=== PATIENT | female | born 1955 | race Caucasian/White ===

== ENCOUNTER 2018-10-15 18:50 | Emergency (ER) | payer MEDICARE ==
[~2018-10-15] VITALS: Ht 162.6 cm; Wt 83.9 kg
--- OUTSIDE RECORDS SUMMARY | 2018-10-15 18:55 | XMS REPORT | Continuity of Care Document ---
Author Author [facility] Interface Address Unknown Phone Unavailable Problems Problem Status Onset Date Classification Date Reported Comments Source Anxiety Active Diagnosis 01/06/2014 [facility] Insomnia Active Problem 02/09/2015 [facility] Diabetes mellitus Active Problem 02/09/2015 [facility] Chronic pain Active Problem 02/09/2015 [facility] Hypothyroid Active Problem 02/09/2015 [facility] Arachnoiditis Active Problem 02/09/2015 [facility] TMJ Active Problem 02/09/2015 [facility] Depression Active Problem 02/09/2015 [facility] Encounter for screening mammogram for malignant neoplasm of breast Active Diagnosis 05/13/2013 [facility] Ear pain Active Diagnosis 07/31/2013 [facility] UTI Active Diagnosis 05/14/2014 [facility] HTN Active Problem 02/09/2015 [facility] Cephalgia Active Diagnosis 02/18/2014 [facility] Monilia infection Active Diagnosis 01/06/2014 [facility] Hyperlipidemia Active Problem 02/09/2015 [facility] Peripheral neuropathy Active Problem 02/09/2015 [facility] Vitamin d deficiency Active Problem 02/09/2015 [facility] Abnormal urine odor Active Diagnosis 04/28/2014 [facility] Other follow-up examination Active Diagnosis 10/11/2014 [facility] Obesity Active Diagnosis 10/11/2014 [facility] BMI 31.0-31.9,adult Active Diagnosis 10/11/2014 [facility] Left anterior fascicular block Active Diagnosis 02/09/2015 [facility] Encounter for screening breast examination Active Diagnosis 10/11/2014 [facility] Urinary tract infection Active Diagnosis 01/04/2015 [facility] History of recent fall Active Diagnosis 12/18/2014 [facility] Mild concentric left ventricular hypertrophy Active Diagnosis 12/18/2014 [facility] Rib pain on right side Active Diagnosis 12/18/2014 [facility] Lumbosacral radiculopathy Active Problem 07/29/2016 [facility] Type 2 diabetes mellitus with diabetic mononeuropathy Active Problem 07/29/2016 [facility] Primary osteoarthritis of right foot Active Problem 07/29/2016 [facility] Peripheral neuropathy Active Problem 05/04/2015 [facility] Insomnia Active Problem 05/04/2015 [facility] HTN Active Problem 05/04/2015 [facility] TMJ Active Problem 05/04/2015 [facility] Depression Active Problem 05/04/2015 [facility] Diabetes Active Problem 05/04/2015 [facility] Arachnoiditis Active Problem 05/04/2015 [facility] Chronic pain Active Problem 05/04/2015 [facility] Hypothyroidism Active Problem 05/04/2015 [facility] Low back pain Active Problem 05/04/2015 [facility] Hyperlipidemia Active Problem 05/04/2015 [facility] Vitamin D deficiency Active Problem 05/04/2015 [facility] Hypertriglyceridemia Active Problem 05/04/2015 [facility] Acute sinusitis, unspecified Active Diagnosis 04/03/2015 [facility] Chronic arthritis Active Diagnosis 04/23/2015 [facility] Ear pain Active Diagnosis 04/23/2015 [facility] Medications Medication Details Route Status Patient Instructions Ordering Provider Order Date Source Invokana 1 tablet Orally Active 100 mg Orally Once a day Darinel 04/21/2015 [facility] Lovaza 2 capsules Orally Active 1 GM Orally Twice a day Darinel 04/21/2015 [facility] Levothyroxine Sodium 1 tablet Orally Active 100 MCG Orally Once a day, 30 minutes before first meal on an empty stomach Venus 04/06/2015 [facility] Omnicef 1 capsule Orally Active 300 MG Orally every 12 hrs Buntyn 03/31/2015 [facility] Macrobid 1 capsule with food Orally Active 100 mg Orally every 12 hrs [place] 12/16/2014 [facility] Cipro 1 tablet Orally Active 250 MG Orally Twice a day [place] 04/15/2014 [facility] MetFORMIN HCl ER 1 tablet Orally Active 500 mg [facility] a [facility] Lisinopril 1 tablet Orally Active 10 mg Orally Once a day [facility] 02/16/2014 [facility] MetFORMIN HCl ER 1 tablet Orally Active 1000 mg Orally twice a day (bid) [facility] 02/16/2014 [facility] Effexor XR 1 capsule with food Orally Active 75 mg Orally Once a day [facility] 12/10/2013 [facility] Zolpidem Tartrate 1 tablet at bedtime Orally Active 5 MG Orally qhs [facility] 12/10/2013 [facility] Cipro 1 tablet Orally Active 250 MG Orally Twice a day [facility] 09/11/2013 [facility] Venlafaxine HCl ER 1 capsule Orally Active 150 MG Orally Once a day [facility] 06/30/2013 [facility] Bydureon 2 mg subcutaneous Active 2mg subcutaneous weekly [facility] 06/30/2013 [facility] Bydureon 2 mg subcutaneous Active 2mg subcutaneous weekly [facility] 06/30/2013 [facility] Vitamin D (Ergocalciferol) 1 capsule Orally Active 14894 UNIT Orally Once a week [facility] 05/09/2013 [facility] Augmentin 1 tablet Orally Active 875-125 MG Orally Twice a day [facility] 05/01/2013 [facility] Hydrocodone-Acetaminophen 1 tablet as needed Orally Active 10- 325 MG Orally every 6 hrs [facility] Cranberry Plus Vitamin C as directed Orally Active 4200-20-3 MG-MG-UNIT Orally [facility] Januvia 1 tablet Orally Active 100 mg Orally Once a day [facility] Levothyroxine Sodium 1 tablet on an empty stomach in the morning Orally No Longer Active 75 MCG Orally Once a day Trixie [facility] Venlafaxine HCl ER 2 tablet with food Orally No Longer Active 150 MG Orally [facility] Glimepiride 2 tablet with breakfast or the first main meal of the day Orally Active 4 mg Orally Once a day Venus [facility] Pravastatin Sodium 1 tablet Orally Active 40 mg Orally Once a day Zachariahtonya [facility] Levothyroxine Sodium 1 tablet on an empty stomach in the morning Orally Active 75 MCG Orally [facility] Meloxicam 1 tablet Orally Active 7.5 MG Orally Once a day [facility] Tizanidine HCl 1 tablet as needed Orally Active 2 MG Orally every 8 hrs [facility] Baclofen 62.45 mg Intrathecal Active 50 MCG/ML Intrathecal daily Venus [facility] Gabapentin Unknown Orally Active 100 mg Orally patient takes 6 tablets through out the day Venus [facility] Tizanidine HCl 1 capsule as needed Orally Active 2 MG Orally every 8 hrs Venus [facility] Pravastatin Sodium 1 tablet Orally Active 80 mg Orally Once a day Venus [facility] Allergies, Adverse Reactions, Alerts Substance Category Reaction Severity Reaction type Status Date Reported Comments Source N.K.D.A. Adverse Reaction Info Not Available Adverse Reaction Active 04/21/2015 [facility] Immunizations Immunization Date Given Site Status Last Updated Comments Source Results Order Name Results Value Reference Range Date Interpretation Comments Source Vital Signs Vital Sign Value Date Comments Source Weight 188 04/21/2015 [facility] Height 64 04/21/2015 [facility] Heart Rate 100 04/21/2015 [facility] Diastolic (mm Hg) 72 04/21/2015 [facility] Systolic (mm Hg) 124 04/21/2015 [facility] Weight 193 03/31/2015 [facility] Height 64 03/31/2015 [facility] Heart Rate 76 03/31/2015 [facility] Diastolic (mm Hg) 74 03/31/2015 [facility] Systolic (mm Hg) 126 03/31/2015 [facility] Weight 185 02/03/2015 [facility] Height 64 02/03/2015 [facility] Heart Rate 76 02/03/2015 [facility] Diastolic (mm Hg) 76 02/03/2015 [facility] Systolic (mm Hg) 134 02/03/2015 [facility] Weight 185 12/16/2014 [facility] Height 64 12/16/2014 [facility] Heart Rate 78 12/16/2014 [facility] Diastolic (mm Hg) 64 12/16/2014 [facility] Systolic (mm Hg) 120 12/16/2014 [facility] Weight 182 10/08/2014 [facility] Height 64 10/08/2014 [facility] Heart Rate 94 10/08/2014 [facility] Diastolic (mm Hg) 70 10/08/2014 [facility] Systolic (mm Hg) 132 10/08/2014 [facility] Weight 188 04/15/2014 [facility] Height 64 04/15/2014 [facility] Temperature Oral (F) 98.4 F 04/15/2014 [facility] Heart Rate 80 04/15/2014 [facility] Diastolic (mm Hg) 86 04/15/2014 [facility] Systolic (mm Hg) 136 04/15/2014 [facility] Weight 200 04/09/2014 [facility] Height 64 04/09/2014 [facility] Heart Rate 76 04/09/2014 [facility] Diastolic (mm Hg) 74 04/09/2014 [facility] Systolic (mm Hg) 120 04/09/2014 [facility] Weight 200 02/16/2014 [facility] Height 64 02/16/2014 [facility] Heart Rate 88 02/16/2014 [facility] Diastolic (mm Hg) 100 02/16/2014 [facility] Systolic (mm Hg) 160 02/16/2014 [facility] Weight 206 12/10/2013 [facility] Height 64 12/10/2013 [facility] Temperature Oral (F) 98.2 F 12/10/2013 [facility] Heart Rate 80 12/10/2013 [facility] Diastolic (mm Hg) 82 12/10/2013 [facility] Systolic (mm Hg) 120 12/10/2013 [facility] Weight 202 09/11/2013 [facility] Height 64 09/11/2013 [facility] Heart Rate 82 09/11/2013 [facility] Diastolic (mm Hg) 86 09/11/2013 [facility] Systolic (mm Hg) 138 09/11/2013 [facility] Weight 210 06/30/2013 [facility] Height 64 06/30/2013 [facility] Heart Rate 82 06/30/2013 [facility] Diastolic (mm Hg) 70 06/30/2013 [facility] Systolic (mm Hg) 120 06/30/2013 [facility] Weight 205 05/01/2013 [facility] Height 64 05/01/2013 [facility] Temperature Oral (F) 98.4 F 05/01/2013 [facility] Heart Rate 88 05/01/2013 [facility] Diastolic (mm Hg) 98 05/01/2013 [facility] Systolic (mm Hg) 138 05/01/2013 [facility] Encounters Location Location Details Encounter Type Encounter Number Reason For Visit Attending Provider ADM Date DC Date Status Source [facility] JOANNE [id number] 05/01/2013 05/01/2013 [facility] JOANNE [id number] 05/01/2013 05/01/2013 [facility] JOANNE [id number] 05/01/2013 05/01/2013 [facility] DM [id number] 05/01/2013 05/01/2013 [facility] DM [id number] 05/01/2013 05/01/2013 [facility] DM [id number] 05/01/2013 05/01/2013 [facility] DM [id number] 05/01/2013 05/01/2013 [facility] DM [id number] 05/01/2013 05/01/2013 [facility] DM [id number] 05/01/2013 05/01/2013 [facility] DM [id number] 05/01/2013 05/01/2013 [facility] DM [id number] 05/01/2013 05/01/2013 [facility] DM [id number] 05/01/2013 05/01/2013 [facility] DM [id number] 05/01/2013 05/01/2013 [facility] DM [id number] 05/01/2013 05/01/2013 [facility] DM [id number] 05/01/2013 05/01/2013 [facility] DM [id number] 05/01/2013 05/01/2013 [facility] DM [id number] 05/01/2013 05/01/2013 [facility] DM [id number] 05/01/2013 05/01/2013 [facility] DM [id number] 05/01/2013 05/01/2013 [facility] DM [id number] 05/01/2013 05/01/2013 [facility] DM [id number] 05/01/2013 05/01/2013 [facility] DM [id number] 05/01/2013 05/01/2013 [facility] Test Results/MMG order [id number] 05/09/2013 05/09/2013 [facility] Test Results/MMG order [id number] 05/09/2013 05/09/2013 [facility] Test Results/MMG order [id number] 05/09/2013 05/09/2013 [facility] Test Results/MMG order [id number] 05/09/2013 05/09/2013 [facility] Test Results/MMG order [id number] 05/09/2013 05/09/2013 [facility] Test Results/MMG order [id number] 05/09/2013 05/09/2013 [facility] Test Results/MMG order [id number] 05/09/2013 05/09/2013 [facility] Test Results/MMG order [id number] 05/09/2013 05/09/2013 [facility] Test Results/MMG order [id number] 05/09/2013 05/09/2013 [facility] Test Results/MMG order [id number] 05/09/2013 05/09/2013 [facility] Test Results/MMG order [id number] 05/09/2013 05/09/2013 [facility] Test Results/MMG order [id number] 05/09/2013 05/09/2013 [facility] Test Results/MMG order [id number] 05/09/2013 05/09/2013 [facility] Test Results/MMG order [id number] 05/09/2013 05/09/2013 [facility] Test Results/MMG order [id number] 05/09/2013 05/09/2013 [facility] Test Results/MMG order [id number] 05/09/2013 05/09/2013 [facility] Test Results/MMG order [id number] 05/09/2013 05/09/2013 [facility] Test Results/MMG order [id number] 05/09/2013 05/09/2013 [facility] Test Results/MMG order [id number] 05/09/2013 05/09/2013 [facility] Test Results/MMG order [id number] 05/09/2013 05/09/2013 [facility] Test Results/MMG order [id number] 05/09/2013 05/09/2013 [facility] Test Results/MMG order [id number] 05/09/2013 05/09/2013 [facility] Test Results/MMG order [id number] 05/09/2013 05/09/2013 [facility] Test Results/MMG order [id number] 05/09/2013 05/09/2013 [facility] Medication Refill [id number] 05/28/2013 05/28/2013 [facility] Medication Refill [id number] 05/28/2013 05/28/2013 [facility] Medication Refill [id number] 05/28/2013 05/28/2013 [facility] Medication Refill [id number] 05/28/2013 05/28/2013 [facility] Medication Refill [id number] 05/28/2013 05/28/2013 [facility] Medication Refill [id number] 05/28/2013 05/28/2013 [facility] Medication Refill [id number] 05/28/2013 05/28/2013 [facility] Medication Refill [id number] 05/28/2013 05/28/2013 [facility] Medication Refill [id number] 05/28/2013 05/28/2013 [facility] Medication Refill [id number] 05/28/2013 05/28/2013 [facility] Medication Refill [id number] 05/28/2013 05/28/2013 [facility] Medication Refill [id number] 05/28/2013 05/28/2013 [facility] [facility] Medication Refill [id number] 05/28/2013 05/28/2013 [facility] Medication Refill [id number] 05/28/2013 05/28/2013 [facility] Medication Refill [id number] 05/28/2013 05/28/2013 [facility] Medication Refill [id number] 05/28/2013 05/28/2013 [facility] Medication Refill [id number] 05/28/2013 05/28/2013 [facility] Medication Refill [id number] 05/28/2013 05/28/2013 [facility] Medication Refill [id number] 05/28/2013 05/28/2013 [facility] Medication Refill [id number] 05/28/2013 05/28/2013 [facility] Medication Refill [id number] 05/28/2013 05/28/2013 [facility] Medication Refill [id number] 05/28/2013 05/28/2013 [facility] Medication Refill [id number] 05/28/2013 05/28/2013 [facility] DM [id number] 06/30/2013 06/30/2013 [facility] DM [id number] 06/30/2013 06/30/2013 [facility] DM [id number] 06/30/2013 06/30/2013 [facility] DM [id number] 06/30/2013 06/30/2013 [facility] DM [id number] 06/30/2013 06/30/2013 [facility] DM [id number] 06/30/2013 06/30/2013 [facility] DM [id number] 06/30/2013 06/30/2013 [facility] DM [id number] 06/30/2013 06/30/2013 [facility] DM [id number] 06/30/2013 06/30/2013 [facility] DM [id number] 06/30/2013 06/30/2013 [facility] DM [id number] 06/30/2013 06/30/2013 [facility] DM [id number] 06/30/2013 06/30/2013 [facility] DM [id number] 06/30/2013 06/30/2013 [facility] DM [id number] 06/30/2013 06/30/2013 [facility] DM [id number] 06/30/2013 06/30/2013 [facility] DM [id number] 06/30/2013 06/30/2013 [facility] DM [id number] 06/30/2013 06/30/2013 [facility] DM [id number] 06/30/2013 06/30/2013 [facility] DM [id number] 06/30/2013 06/30/2013 [facility] DM [id number] 06/30/2013 06/30/2013 [facility] DM [id number] 06/30/2013 06/30/2013 [facility] DM [id number] 06/30/2013 06/30/2013 [facility] DIAB CHK [id number] 09/11/2013 09/11/2013 [facility] DIAB CHK [id number] 09/11/2013 09/11/2013 [facility] DIAB CHK [id number] 09/11/2013 09/11/2013 [facility] DIAB CHK [id number] 09/11/2013 09/11/2013 [facility] DIAB K [id number] 09/11/2013 09/11/2013 [facility] DIAB K [id number] 09/11/2013 09/11/2013 [facility] DIAB K [id number] 09/11/2013 09/11/2013 [facility] DIAB [facility] [id number] 09/11/2013 09/11/2013 [facility] DIAB K [id number] 09/11/2013 09/11/2013 [facility] DIAB [facility] [id number] 09/11/2013 09/11/2013 [facility] DIAB [facility] [id number] 09/11/2013 09/11/2013 [facility] DIAB K [id number] 09/11/2013 09/11/2013 [facility] DIAB [facility] [id number] 09/11/2013 09/11/2013 [facility] DIAB [facility] [id number] 09/11/2013 09/11/2013 [facility] DIAB K [id number] 09/11/2013 09/11/2013 [facility] DIAB K [id number] 09/11/2013 09/11/2013 [facility] DIAB K [id number] 09/11/2013 09/11/2013 [facility] DIAB K [id number] 09/11/2013 09/11/2013 [facility] DIAB K [id number] 09/11/2013 09/11/2013 [facility] DIAB K [id number] 09/11/2013 09/11/2013 [facility] Diabetes/ Anxiety [id number] 12/10/2013 12/10/2013 [facility] Diabetes/ Anxiety [id number] 12/10/2013 12/10/2013 [facility] Diabetes/ Anxiety [id number] 12/10/2013 12/10/2013 [facility] Diabetes/ Anxiety [id number] 12/10/2013 12/10/2013 [facility] Diabetes/ Anxiety [id number] 12/10/2013 12/10/2013 [facility] Diabetes/ Anxiety [id number] 12/10/2013 12/10/2013 [facility] Diabetes/ Anxiety [id number] 12/10/2013 12/10/2013 [facility] Diabetes/ Anxiety [id number] 12/10/2013 12/10/2013 [facility] Diabetes/ Anxiety [id number] 12/10/2013 12/10/2013 [facility] Diabetes/ Anxiety [id number] 12/10/2013 12/10/2013 [facility] Diabetes/ Anxiety [id number] 12/10/2013 12/10/2013 [facility] Diabetes/ Anxiety [id number] 12/10/2013 12/10/2013 [facility] Diabetes/ Anxiety [id number] 12/10/2013 12/10/2013 [facility] Diabetes/ Anxiety [id number] 12/10/2013 12/10/2013 [facility] Diabetes/ Anxiety [id number] 12/10/2013 12/10/2013 [facility] Diabetes/ Anxiety [id number] 12/10/2013 12/10/2013 [facility] Diabetes/ Anxiety [id number] 12/10/2013 12/10/2013 [facility] Diabetes/ Anxiety [id number] 12/10/2013 12/10/2013 [facility] Diabetes/ Anxiety [id number] 12/10/2013 12/10/2013 [facility] Venlafaxine prescription [id number] 12/23/2013 12/23/2013 [facility] Venlafaxine prescription [id number] 12/23/2013 12/23/2013 [facility] Venlafaxine prescription [id number] 12/23/2013 12/23/2013 [facility] Venlafaxine prescription [id number] 12/23/2013 12/23/2013 [facility] Venlafaxine prescription [id number] 12/23/2013 12/23/2013 [facility] Venlafaxine prescription [id number] 12/23/2013 12/23/2013 [facility] Venlafaxine prescription [id number] 12/23/2013 12/23/2013 [facility] Venlafaxine prescription [id number] 12/23/2013 12/23/2013 [facility] Venlafaxine prescription [id number] 12/23/2013 12/23/2013 [facility] Venlafaxine prescription [id number] 12/23/2013 12/23/2013 [facility] Venlafaxine prescription [id number] 12/23/2013 12/23/2013 [facility] Venlafaxine prescription [id number] 12/23/2013 12/23/2013 [facility] Venlafaxine prescription [id number] 12/23/2013 12/23/2013 [facility] Venlafaxine prescription [id number] 12/23/2013 12/23/2013 [facility] Venlafaxine prescription [id number] 12/23/2013 12/23/2013 [facility] Venlafaxine prescription [id number] 12/23/2013 12/23/2013 [facility] Venlafaxine prescription [id number] 12/23/2013 12/23/2013 [facility] Venlafaxine prescription [id number] 12/23/2013 12/23/2013 [facility] Venlafaxine prescription [id number] 12/23/2013 12/23/2013 [facility] FOLLOW UP ON DIABETES [id number] 02/16/2014 02/16/2014 [facility] FOLLOW UP ON DIABETES [id number] 02/16/2014 02/16/2014 [facility] FOLLOW UP ON DIABETES [id number] 02/16/2014 02/16/2014 [facility] FOLLOW UP ON DIABETES [id number] 02/16/2014 02/16/2014 [facility] FOLLOW UP ON DIABETES [id number] 02/16/2014 02/16/2014 [facility] FOLLOW UP ON DIABETES [id number] 02/16/2014 02/16/2014 [facility] FOLLOW UP ON DIABETES [id number] 02/16/2014 02/16/2014 [facility] FOLLOW UP ON DIABETES [id number] 02/16/2014 02/16/2014 [facility] FOLLOW UP ON DIABETES [id number] 02/16/2014 02/16/2014 [facility] FOLLOW UP ON DIABETES [id number] 02/16/2014 02/16/2014 [facility] FOLLOW UP ON DIABETES [id number] 02/16/2014 02/16/2014 [facility] FOLLOW UP ON DIABETES [id number] 02/16/2014 02/16/2014 [facility] FOLLOW UP ON DIABETES [id number] 02/16/2014 02/16/2014 [facility] FOLLOW UP ON DIABETES [id number] 02/16/2014 02/16/2014 [facility] FOLLOW UP ON DIABETES [id number] 02/16/2014 02/16/2014 [facility] FOLLOW UP ON DIABETES [id number] 02/16/2014 02/16/2014 [facility] FOLLOW UP ON DIABETES [id number] 02/16/2014 02/16/2014 [facility] 2 week follow up [id number] 04/09/2014 04/09/2014 [facility] 2 week follow up [id number] 04/09/2014 04/09/2014 [facility] 2 week follow up [id number] 04/09/2014 04/09/2014 [facility] 2 week follow up [id number] 04/09/2014 04/09/2014 [facility] 2 week follow up [id number] 04/09/2014 04/09/2014 [facility] 2 week follow up [id number] 04/09/2014 04/09/2014 [facility] 2 week follow up [id number] 04/09/2014 04/09/2014 [facility] 2 week follow up [id number] 04/09/2014 04/09/2014 [facility] 2 week follow up [id number] 04/09/2014 04/09/2014 [facility] 2 week follow up [id number] 04/09/2014 04/09/2014 [facility] 2 week follow up [id number] 04/09/2014 04/09/2014 [facility] 2 week follow up [id number] 04/09/2014 04/09/2014 [facility] 2 week follow up [id number] 04/09/2014 04/09/2014 [facility] 2 week follow up [id number] 04/09/2014 04/09/2014 [facility] 2 week follow up [id number] 04/09/2014 04/09/2014 [facility] 2 week follow up [id number] 04/09/2014 04/09/2014 [facility] BLADDER [id number] 04/15/2014 04/15/2014 [facility] BLADDER [id number] 04/15/2014 04/15/2014 [facility] BLADDER [id number] 04/15/2014 04/15/2014 [facility] BLADDER [id number] 04/15/2014 04/15/2014 [facility] BLADDER [id number] 04/15/2014 04/15/2014 [facility] BLADDER [id number] 04/15/2014 04/15/2014 [facility] BLADDER [id number] 04/15/2014 04/15/2014 [facility] BLADDER [id number] 04/15/2014 04/15/2014 [facility] [facility] BLADDER [id number] 04/15/2014 04/15/2014 [facility] BLADDER [id number] 04/15/2014 04/15/2014 [facility] BLADDER [id number] 04/15/2014 04/15/2014 [facility] BLADDER [id number] 04/15/2014 04/15/2014 [facility] BLADDER [id number] 04/15/2014 04/15/2014 [facility] BLADDER [id number] 04/15/2014 04/15/2014 [facility] BLADDER [id number] 04/15/2014 04/15/2014 [facility] BLADDER [id number] 04/15/2014 04/15/2014 [facility] Urine Infection [id number] 04/30/2014 04/30/2014 [facility] Urine Infection [id number] 04/30/2014 04/30/2014 [facility] Urine Infection [id number] 04/30/2014 04/30/2014 [facility] Urine Infection [id number] 04/30/2014 04/30/2014 [facility] Urine Infection [id number] 04/30/2014 04/30/2014 [facility] Urine Infection [id number] 04/30/2014 04/30/2014 [facility] Urine Infection [id number] 04/30/2014 04/30/2014 [facility] Urine Infection [id number] 04/30/2014 04/30/2014 [facility] Urine Infection [id number] 04/30/2014 04/30/2014 [facility] Urine Infection [id number] 04/30/2014 04/30/2014 [facility] Urine Infection [id number] 04/30/2014 04/30/2014 [facility] Urine Infection [id number] 04/30/2014 04/30/2014 [facility] Urine Infection [id number] 04/30/2014 04/30/2014 [facility] Urine Infection [id number] 04/30/2014 04/30/2014 [facility] [place] U/A C&S [id number] 05/04/2014 05/04/2014 [facility] [place] U/A C&S [id number] 05/04/2014 05/04/2014 [facility] [place] U/[place] C&S [id number] 05/04/2014 05/04/2014 [facility] [place] U/[place] C&S [id number] 05/04/2014 05/04/2014 [facility] [place] U/[place] C&S [id number] 05/04/2014 05/04/2014 [facility] [place] U/[place] C&S [id number] 05/04/2014 05/04/2014 [facility] [place] U/[place] C&S [id number] 05/04/2014 05/04/2014 [facility] [place] U/[place] C&S [id number] 05/04/2014 05/04/2014 [facility] [place] U[place] C&S [id number] 05/04/2014 05/04/2014 [facility] [place] U/[place] C&S [id number] 05/04/2014 05/04/2014 [facility] [place] U[place] C&S [id number] 05/04/2014 05/04/2014 [facility] [place] U/[place] C&S [id number] 05/04/2014 05/04/2014 [facility] [place] U/[place] C&S [id number] 05/04/2014 05/04/2014 [facility] [place] U[place] C&S [id number] 05/04/2014 05/04/2014 [facility] Unknown [id number] 05/07/2014 05/07/2014 [facility] Unknown [id number] 05/07/2014 05/07/2014 [facility] Unknown [id number] 05/07/2014 05/07/2014 [facility] Unknown [id number] 05/07/2014 05/07/2014 [facility] Unknown [id number] 05/07/2014 05/07/2014 [facility] Unknown [id number] 05/07/2014 05/07/2014 [facility] Unknown [id number] 05/07/2014 05/07/2014 [facility] Unknown [id number] 05/07/2014 05/07/2014 [facility] Unknown [id number] 05/07/2014 05/07/2014 [facility] Unknown [id number] 05/07/2014 05/07/2014 [facility] Unknown [id number] 05/07/2014 05/07/2014 [facility] Unknown [id number] 05/07/2014 05/07/2014 [facility] Unknown [id number] 05/07/2014 05/07/2014 [facility] Unknown [id number] 05/07/2014 05/07/2014 [facility] Refill [id number] 05/29/2014 05/29/2014 [facility] Refill [id number] 05/29/2014 05/29/2014 [facility] Refill [id number] 05/29/2014 05/29/2014 [facility] Refill [id number] 05/29/2014 05/29/2014 [facility] Refill [id number] 05/29/2014 05/29/2014 [facility] Refill [id number] 05/29/2014 05/29/2014 [facility] Refill [id number] 05/29/2014 05/29/2014 [facility] Refill [id number] 05/29/2014 05/29/2014 [facility] Refill [id number] 05/29/2014 05/29/2014 [facility] Refill [id number] 05/29/2014 05/29/2014 [facility] Refill [id number] 05/29/2014 05/29/2014 [facility] follow up [id number] 06/24/2014 06/24/2014 [facility] follow up [id number] 06/24/2014 06/24/2014 [facility] follow up [id number] 06/24/2014 06/24/2014 [facility] follow up [id number] 06/24/2014 06/24/2014 [facility] follow up [id number] 06/24/2014 06/24/2014 [facility] follow up [id number] 06/24/2014 06/24/2014 [facility] follow up [id number] 06/24/2014 06/24/2014 [facility] follow up [id number] 06/24/2014 06/24/2014 [facility] follow up [id number] 06/24/2014 06/24/2014 [facility] follow up [id number] 06/24/2014 06/24/2014 [facility] Unknown [id number] 06/26/2014 06/26/2014 [facility] Unknown [id number] 06/26/2014 06/26/2014 [facility] Unknown [id number] 06/26/2014 06/26/2014 [facility] Unknown [id number] 06/26/2014 06/26/2014 [facility] Unknown [id number] 06/26/2014 06/26/2014 [facility] Unknown [id number] 06/26/2014 06/26/2014 [facility] Unknown [id number] 06/26/2014 06/26/2014 [facility] Unknown [id number] 06/26/2014 06/26/2014 [facility] Unknown [id number] 06/26/2014 06/26/2014 [facility] Unknown [id number] 06/26/2014 06/26/2014 [facility] 2 week follow up [id number] 07/08/2014 07/08/2014 [facility] 2 week follow up [id number] 07/08/2014 07/08/2014 [facility] 2 week follow up [id number] 07/08/2014 07/08/2014 [facility] 2 week follow up [id number] 07/08/2014 07/08/2014 [facility] 2 week follow up [id number] 07/08/2014 07/08/2014 [facility] 2 week follow up [id number] 07/08/2014 07/08/2014 [facility] 2 week follow up [id number] 07/08/2014 07/08/2014 [facility] 2 week follow up [id number] 07/08/2014 07/08/2014 [facility] 2 week follow up [id number] 07/08/2014 07/08/2014 [facility] 2 week follow up [id number] 07/08/2014 07/08/2014 [facility] Unknown [id number] 07/26/2014 07/26/2014 [facility] Unknown [id number] 07/26/2014 07/26/2014 [facility] Unknown [id number] 07/26/2014 07/26/2014 [facility] Unknown [id number] 07/26/2014 07/26/2014 [facility] Unknown [id number] 07/26/2014 07/26/2014 [facility] Unknown [id number] 07/26/2014 07/26/2014 [facility] Unknown [id number] 07/26/2014 07/26/2014 [facility] Unknown [id number] 07/26/2014 07/26/2014 [facility] Unknown [id number] 07/26/2014 07/26/2014 [facility] Unknown [id number] 07/26/2014 07/26/2014 [facility] Update Demographics - Personal Info [id number] 08/26/2014 08/26/2014 [facility] Update Demographics - Additional Info [id number] 08/26/2014 08/26/2014 [facility] Update Demographics - Additional Info [id number] 08/26/2014 08/26/2014 [facility] Update Demographics - Personal Info [id number] 08/26/2014 08/26/2014 [facility] Update Demographics - Personal Info [id number] 08/26/2014 08/26/2014 [facility] Update Demographics - Additional Info [id number] 08/26/2014 08/26/2014 [facility] Update Demographics - Personal Info [id number] 08/26/2014 08/26/2014 [facility] Update Demographics - Additional Info [id number] 08/26/2014 08/26/2014 [facility] Update Demographics - Personal Info [id number] 08/26/2014 08/26/2014 [facility] Update Demographics - Additional Info [id number] 08/26/2014 08/26/2014 [facility] Update Demographics - Personal Info [id number] 08/26/2014 08/26/2014 [facility] Update Demographics - Additional Info [id number] 08/26/2014 08/26/2014 [facility] Update Demographics - Personal Info [id number] 08/26/2014 08/26/2014 [facility] Update Demographics - Additional Info [id number] 08/26/2014 08/26/2014 [facility] Update Demographics - Personal Info [id number] 08/26/2014 08/26/2014 [facility] Update Demographics - Additional Info [id number] 08/26/2014 08/26/2014 [facility] Update Demographics - Personal Info [id number] 08/26/2014 08/26/2014 [facility] Update Demographics - Additional Info [id number] 08/26/2014 08/26/2014 [facility] Update Demographics - Personal Info [id number] 08/26/2014 08/26/2014 [facility] Update Demographics - Additional Info [id number] 08/26/2014 08/26/2014 [facility] [id number] 09/03/2014 09/03/2014 [facility] SIN[facility] ALLERGIES [id number] 09/03/2014 09/03/2014 [facility] SINUS AND ALLERGIES [id number] 09/03/2014 09/03/2014 [facility] SINUS AND ALLERGIES [id number] 09/03/2014 09/03/2014 [facility] SINUS AND ALLERGIES [id number] 09/03/2014 09/03/2014 [facility] SINUS AND ALLERGIES [id number] 09/03/2014 09/03/2014 [facility] SINUS AND ALLERGIES [id number] 09/03/2014 09/03/2014 [facility] SINUS AND ALLERGIES [id number] 09/03/2014 09/03/2014 [facility] SINUS AND ALLERGIES [id number] 09/03/2014 09/03/2014 [facility] SINUS AND ALLERGIES [id number] 09/03/2014 09/03/2014 [facility] Carley Saucedo; 1955 [id number] 09/10/2014 09/10/2014 [facility] Carley Saucedo; 1955 [id number] 09/10/2014 09/10/2014 [facility] Carley Saucedo; 1955 [id number] 09/10/2014 09/10/2014 [facility] Carley Saucedo; 1955 [id number] 09/10/2014 09/10/2014 [facility] Carley Saucedo; 1955 [id number] 09/10/2014 09/10/2014 [facility] Carley Saucedo; 1955 [id number] 09/10/2014 09/10/2014 [facility] Carley Saucedo; 1955 [id number] 09/10/2014 09/10/2014 [facility] Carley Saucedo; 1955 [id number] 09/10/2014 09/10/2014 [facility] Carley Saucedo; 1955 [id number] 09/10/2014 09/10/2014 [facility] Carley Saucedo; 1955 [id number] 09/10/2014 09/10/2014 [facility] MED REFILL [id number] 10/08/2014 10/08/2014 [facility] MED REFILL [id number] 10/08/2014 10/08/2014 [facility] MED REFILL [id number] 10/08/2014 10/08/2014 [facility] MED REFILL [id number] 10/08/2014 10/08/2014 [facility] MED REFILL [id number] 10/08/2014 10/08/2014 [facility] MED REFILL [id number] 10/08/2014 10/08/2014 [facility] MED REFILL [id number] 10/08/2014 10/08/2014 [facility] MED REFILL [id number] 10/08/2014 10/08/2014 [facility] MED REFILL [id number] 10/08/2014 10/08/2014 [facility] MED REFILL [id number] 10/08/2014 10/08/2014 [facility] FOLLOW UP [id number] 11/10/2014 11/10/2014 [facility] FOLLOW UP [id number] 11/10/2014 11/10/2014 [facility] FOLLOW UP [id number] 11/10/2014 11/10/2014 [facility] FOLLOW UP [id number] 11/10/2014 11/10/2014 [facility] FOLLOW UP [id number] 11/10/2014 11/10/2014 [facility] FOLLOW UP [id number] 11/10/2014 11/10/2014 [facility] FOLLOW UP [id number] 11/10/2014 11/10/2014 [facility] FOLLOW UP [id number] 11/10/2014 11/10/2014 [facility] FOLLOW UP [id number] 11/10/2014 11/10/2014 [facility] MYA-SADAF [id number] 11/10/2014 11/10/2014 [facility] MYA-SADAF [id number] 11/10/2014 11/10/2014 [facility] MYA-SADAF [id number] 11/10/2014 11/10/2014 [facility] MYA-SADAF [id number] 11/10/2014 11/10/2014 [facility] MYA-SADAF [id number] 11/10/2014 11/10/2014 [facility] MYA-SADAF [id number] 11/10/2014 11/10/2014 [facility] MYA-SADAF [id number] 11/10/2014 11/10/2014 [facility] ECHO-SADAF [id number] 11/10/2014 11/10/2014 [facility] LUZ MARIA [id number] 11/10/2014 11/10/2014 [facility] LMOM -results - need to change ATB [id number] 11/18/2014 11/18/2014 [facility] LMOM -results - need to change ATB [id number] 11/18/2014 11/18/2014 [facility] LMOM -results - need to change ATB [id number] 11/18/2014 11/18/2014 [facility] LMOM -results - need to change ATB [id number] 11/18/2014 11/18/2014 [facility] LMOM -results - need to change ATB [id number] 11/18/2014 11/18/2014 [facility] LMOM -results - need to change ATB [id number] 11/18/2014 11/18/2014 [facility] LMOM -results - need to change ATB [id number] 11/18/2014 11/18/2014 [facility] LMOM -results - need to change ATB [id number] 11/18/2014 11/18/2014 [facility] LMOM -results - need to change ATB [id number] 11/18/2014 11/18/2014 [facility] rib pain/ fu [id number] 12/16/2014 12/16/2014 [facility] rib pain/ fu [id number] 12/16/2014 12/16/2014 [facility] rib pain/ fu [id number] 12/16/2014 12/16/2014 [facility] rib pain/ fu [id number] 12/16/2014 12/16/2014 [facility] rib pain/ fu [id number] 12/16/2014 12/16/2014 [facility] rib pain/ fu [id number] 12/16/2014 12/16/2014 [facility] rib pain/ fu [id number] 12/16/2014 12/16/2014 [facility] rib pain/ fu [id number] 12/16/2014 12/16/2014 [facility] Unknown [id number] 12/18/2014 12/18/2014 [facility] Unknown [id number] 12/18/2014 12/18/2014 [facility] Unknown [id number] 12/18/2014 12/18/2014 [facility] Unknown [id number] 12/18/2014 12/18/2014 [facility] Unknown [id number] 12/18/2014 12/18/2014 [facility] Unknown [id number] 12/18/2014 12/18/2014 [facility] Unknown [id number] 12/18/2014 12/18/2014 [facility] Unknown [id number] 12/18/2014 12/18/2014 [facility] fu [id number] 01/01/2015 01/01/2015 [facility] [id number] 01/01/2015 01/01/2015 [facility] [id number] 01/01/2015 01/01/2015 [facility] fu [id number] 01/01/2015 01/01/2015 [facility] fu [id number] 01/01/2015 01/01/2015 [facility] fu [id number] 01/01/2015 01/01/2015 [facility] fu [id number] 01/01/2015 01/01/2015 [facility] Cardiolyte Stress Test [id number] 02/03/2015 02/03/2015 [facility] Cardiolyte Stress Test [id number] 02/03/2015 02/03/2015 [facility] Cardiolyte Stress Test [id number] 02/03/2015 02/03/2015 [facility] Cardiolyte Stress Test [id number] 02/03/2015 02/03/2015 [facility] Cardiolyte Stress Test [id number] 02/03/2015 02/03/2015 [facility] Cardiolyte Stress Test [id number] 02/03/2015 02/03/2015 [facility] medication refills/ sinus [id number] 03/31/2015 03/31/2015 [facility] medication refills/ sinus [id number] 03/31/2015 03/31/2015 [facility] medication refills/ sinus [id number] 03/31/2015 03/31/2015 [facility] medication refills/ sinus [id number] 03/31/2015 03/31/2015 [facility] medication refills/ sinus [id number] 03/31/2015 03/31/2015 [facility] Unknown [id number] 04/06/2015 04/06/2015 [facility] Unknown [id number] 04/06/2015 04/06/2015 [facility] Unknown [id number] 04/06/2015 04/06/2015 [facility] Unknown [id number] 04/06/2015 04/06/2015 [facility] lab results [id number] 04/21/2015 04/21/2015 [facility] lab results [id number] 04/21/2015 04/21/2015 [facility] lab results [id number] 04/21/2015 04/21/2015 [facility] Unknown [id number] 05/03/2015 05/03/2015 [facility] Unknown [id number] 05/03/2015 05/03/2015 [facility] Outpatient [id number] XOCHILT CHAVIS 10/20/2015 Active [facility] [id number] XOCHILT CHAVIS 12/22/2015 Active [facility]patient [id number] XOCHILT CHAVIS 12/23/2015 Active [facility] Unknown [id number] 07/27/2016 07/27/2016 [facility] Procedures Procedure Code Date Perfomer Comments Source
--- OUTSIDE RECORDS SUMMARY | 2018-10-15 18:56 | XMS REPORT ---
Author Author Veronika Echavarria [facility] eClinicalWorks Address Unknown Phone Unavailable Care Team Providers Care Retail Leasing Agent Name Role Phone Veronika Echavarria Unavailable Encounters Encounter Location Date DM [facility] Jun 30, [address] [facility] September 11, 2013 Diabetes/ Anxiety [facility] December 10, 2013 Venlafaxine prescription [facility] Dec 23, 2013 Test Results/MMG order [facility] May 09, 2013 Medication Refill [facility] May 28, 2013 DM [facility] May 01, 2013 BLADDER [facility] Apr 15, 2014 FOLLOW UP ON DIABETES [facility] Feb 16, 2014 2 week follow up [facility] Apr 09, [address] [facility] May 07, [address] [facility] Apr 29, 2014 NV U/A C&S 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 Assessment UTI (lower urinary tract infection) 599.0 Active Problem Chronic pain 338.29 Active Problem Insomnia 780.52 Active Problem HTN (hypertension) 401.9 Active Problem Depression 311 Active Problem Hypothyroid 244.9 Active Problem Diabetes mellitus 250.00 Active Problem TMJ (dislocation of temporomandibular joint) 830.0 Active Medications Medication Code System Code Instructions Start Date End Date Status Dosage Cranberry Plus Vitamin C [facility] [address] 4200-20-3 MG-MG-UNIT Orally Active as directed Meloxicam [facility] [address]-55 7.5 MG Orally Once a day Active 1 tablet Pravastatin Sodium [facility] [address]-89 40 MG Orally Once a day Active 1 tablet Tizanidine HCl [facility] [address]-60 2 MG Orally every 8 hrs Active 1 tablet as needed Lisinopril [facility] [address]-07 10 mg Orally Once a day Feb 16, 2014 Active 1 tablet Effexor XR [facility] [address]-31 75 mg Orally Once a day December 10, 2013 Active 1 capsule with food Venlafaxine HCl ER [facility] [address]-83 150 MG Orally Once a day Jun 30, 2013 Active 1 capsule Levothyroxine Sodium [facility] [address]-03 75 MCG Orally Once a day Active 1 tablet on an empty stomach in the morning Hydrocodone-Acetaminophen [facility] [address]-97 10-325 MG Orally every 6 hrs Active 1 tablet as needed Glimepiride [facility] [address]-68 4 MG Orally Once a day Active 2 tablet with breakfast or the first main meal of the day MetFORMIN HCl ER [facility] [address]-49 500 mg Orally Once a day Feb 16, 2014 Active 1 tablet with evening meal Social History Social History Element Qualifiers Date Reported Ethnicity . Status , Is irish your primary language? Yes Apr 15, 2014 children . 1 son - Jamison Apr 15, 2014 Tobacco Use: . Are you a: former smoker Quit when 23 years old, How many packs per day? less than a half pack, How many years have you smoked? 2-5 Apr 15, 2014 Use of recreational / street drugs? . Answer: No Apr 15, 2014 Where or with whom do you live ? . with Son Apr 15, 2014 Do you have pets? . Status: Yes, Type: dog(s) Apr 15, 2014 Marital Status: . Apr 15, 2014 Caffeine intake? . Status: Yes, What type: Soft Drinks Apr 15, 2014 Do you exercise? . Answer: No Apr 15, 2014 Do you drink alcohol? . Status: No Apr 15, 2014 Occupation: . Disabled Apr 15, 2014 Summary Purpose eClinicalWorks Submission
--- OUTSIDE RECORDS SUMMARY | 2018-10-15 18:56 | XMS REPORT ---
Author Author Veronika Echavarria [facility] eClinicalWorks Address Unknown Phone Unavailable Care Team Providers Care Crib Attendant Name Role Phone Veronika Echavarria Unavailable Encounters Encounter Location Date DM [facility] Jun 30, 2013 DIAB CHK [facility] September 11, 2013 Diabetes/ Anxiety [facility] December 10, 2013 Venlafaxine prescription [facility] Dec 23, 2013 Test Results/MMG order [facility] May 09, 2013 Medication Refill [facility] May 28, 2013 DM [facility] May 01, 2013 BLADDER [facility] Apr 15, 2014 FOLLOW UP ON DIABETES [facility] Feb 16, 2014 2 week follow up [facility] Apr 09, 2014 Unknown [facility] May 07, 2014 Urine Infection [facility] Apr 29, 2014 [place] U/A C&S [facility] May 04, 2014 Problems Problem Type Condition ICD-9 Code Onset Dates Condition Status 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 Status , Is maltese your primary language? Yes Apr 15, 2014 [...]
--- OUTSIDE RECORDS SUMMARY | 2018-10-15 18:56 | XMS REPORT ---
Author Author Veronika Echavarria [facility] eClinicalWorks Address Unknown Phone Unavailable Care Team Providers Care Career And Guidance Counselor Name Role Phone Veronika Ehcavarria Unavailable Encounters Encounter Location Date DM [facility] Jun 30, 2013 Test Results/MMG order [facility] May 09, 2013 Medication Refill [facility] May 28, 2013 DM [facility] May 01, 2013 Problems Problem Type Condition ICD-9 Code Onset Dates Condition Status Assessment Hypothyroid 244.9 Active Assessment Ear pain 388.70 Active Assessment Depression 311 Active 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 Problem TMJ (dislocation of temporomandibular joint) 830.0 Active Problem Depression 311 Active Problem Diabetes mellitus 250.00 Active Assessment Diabetes mellitus 250.00 Active Assessment TMJ (dislocation of temporomandibular joint) 830.0 Active Problem Hypothyroid 244.9 Active 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 Medications Medication Code System Code Instructions Start Date End Date Status Dosage Hydrocodone-Acetaminophen [facility] [address]-61 10-325 MG Orally every 6 hrs Active 1 tablet as needed Cranberry Plus Vitamin C [facility] 85458-[address]43 4200-20-3 MG-MG-UNIT Orally Active as directed Januvia [facility] [address]-99 100 MG Orally Once a day Active 1 tablet Levothyroxine Sodium [facility] [address]-09 75 MCG Orally Once a day Active 1 tablet on an empty stomach in the morning Venlafaxine HCl ER [facility] [address]-35 150 MG Orally Once a day Active 2 tablet with food Glimepiride [facility] [address]-53 4 MG Orally Once a day Active 2 tablet with breakfast or the first main meal of the day Augmentin [facility] [address]-71 875-125 MG Orally Twice a day May 01, 2013 May 11, 2013 Active 1 tablet Pravastatin Sodium [facility] [address]-70 40 MG Orally Once a day Active 1 tablet Social History Social History Element Qualifiers Date Reported Where or with whom do you live ? . with Son May 01, 2013 children . 1 son - Jamison May 01, 2013 Tobacco Use: . Are you a: former smoker Quit when 23 years old, How many packs per day? less than a half pack, How many years have you smoked? 2-5 May 01, 2013 Marital Status: . May 01, 2013 Do you drink alcohol? . Status: No May 01, 2013 Occupation: . Disabled May 01, 2013 Family history Qualifier Description Comment Date Reported Mother alive diabetes May 01, 2013 Siblings alive Sister-breast cancer May 01, 2013 Father heart attack May 01, 2013 Maternal Grandmother breast cancer May 01, 2013 Vital Signs Date/Time: May 01, 2013 Weight 205 lbs Height 64 inches Temperature 98.4 F Cardiac Monitoring Heart Rate 88 Beats per Minute Blood Pressure Diastolic 98 mm Hg Blood Pressure Systolic 138 mm Hg Results Hemoglobin A1c Lipid Panel Comp. Metabolic Panel (14) TSH EKG W/INTERP/ELECTR CBC With Differential/Platelet Vitamin D, 25-Hydroxy Summary Purpose eClinicalWorks Submission
--- OUTSIDE RECORDS SUMMARY | 2018-10-15 18:56 | XMS REPORT ---
Author Author Veronika Echavarria Organization eClinicalWorks Address Unknown Phone Unavailable Care Team Providers Care Manager Account Management Name Role Phone Veronika Echavarria CP Unavailable Encounters Encounter Location Date Test Results/MMG order [facility] May 09, 2013 Problems Problem Type Condition ICD-9 Code Onset Dates Condition Status Problem TMJ (dislocation of temporomandibular joint) 830.0 Active Problem Depression 311 Active Problem Diabetes mellitus 250.00 Active Assessment Encounter for screening mammogram for malignant neoplasm of breast V76.12 Active Problem Hypothyroid 244.9 Active 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 Disabled May 01, 2013 Vital Signs Date/Time: May 01, 2013 Weight 205 lbs Height 64 inches Temperature 98.4 F Cardiac Monitoring Heart Rate 88 Beats per Minute Blood Pressure Diastolic 98 mm Hg Blood Pressure Systolic 138 mm Hg Summary Purpose eClinicalWorks Submission
--- OUTSIDE RECORDS SUMMARY | 2018-10-15 18:56 | XMS REPORT ---
Author Author Bina Lu [facility] eClinicalWorks Address Unknown Phone Unavailable Care Team Providers Care Auxiliary Plant Operator Name Role Phone Bina Lu CP Unavailable Allergies, Adverse Reactions, Alerts Substance Reaction Event Type N.K.D.A. Info Not Available Non Drug Allergy Encounters Encounter Location Date DM [facility] Jun 30, 2013 DIAB CHK [facility] September 11, 2013 Diabetes/ Anxiety [facility] December 10, 2013 Venlafaxine prescription [facility] Dec 23, 2013 Test Results/MMG order [facility] May 09, 2013 Medication Refill [facility] May 28, 2013 DM [facility] May 01, 2013 BLADDER [facility] Apr 15, 2014 SINUS AND ALLERGIES [facility] September 03, 2014 Update Demographics - Additional Info [facility] August 26, 2014 FOLLOW UP ON DIABETES [facility] Feb 16, 2014 2 week follow up [facility] Apr 09, 2014 2 week follow up [facility] Jul 08, 2014 Unknown [facility] July 26, 2014 follow up [facility] Jun 24, 2014 Unknown [facility] Jun 26, 2014 Carley Saucedo; 1955 [facility] September 10, 2014 Unknown [facility] May 07, 2014 MED REFILL [facility] October 08, 2014 Refill [facility] May 29, 2014 Urine Infection [facility] Apr 29, 2014 NV U/A C&S [facility] May 04, 2014 Update Demographics - Personal Info [facility] August 26, 2014 Problems Problem Type Condition ICD-9 Code Onset Dates Condition Status Assessment Other follow-up examination V67.59 Active Assessment Obesity 278.00 Active 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00 Active Assessment Vitamin d deficiency 268.9 Active Assessment Left anterior fascicular block 426.2 Active Assessment Encounter for screening breast examination V76.10 Active Assessment Hypothyroid 244.9 Active Assessment Diabetes mellitus 250.00 Active Assessment HTN (hypertension) 401.9 Active Assessment Insomnia 780.52 Active Medications Medication Code System Code Instructions Start Date End Date Status Dosage Baclofen [facility] [address]-59 50 MCG/ML Intrathecal daily Active 62.45 mg MetFORMIN HCl ER [facility] [address]-87 500 mg Orally Once a day Feb 16, 2014 Active 1 tablet Levothyroxine Sodium [facility] [address]-97 75 MCG Orally Once a day Active 1 tablet on an empty stomach in the morning Pravastatin Sodium [facility] [address]-34 40 mg Orally Once a day Active 1 tablet Cranberry Plus Vitamin C [facility] 47470-71017 4200-20-3 MG-MG-UNIT Orally Active as directed Glimepiride [facility] [address]-01 4 mg Orally Once a day Active 2 tablet with breakfast or the first main meal of the day Lisinopril [facility] [address]-60 10 mg Orally Once a day Feb 16, 2014 Active 1 tablet Gabapentin [facility] [address]-50 100 mg Orally three times a day (tid) Active 2 tablets Venlafaxine HCl ER [facility] [address]-00 150 MG Orally Once a day Jun 30, 2013 Active 1 capsule Hydrocodone-Acetaminophen [facility] [address]-17 10-325 MG Orally every 6 hrs Active 1 tablet as needed Social History Social History Element Qualifiers Date Reported Occupation: . Disabled October 08, 2014 children . 1 son - Jamison October 08, 2014 Ethnicity . Status , Is greenlandic your primary language? Yes October 08, 2014 Tobacco Use: . Are you a: former smoker Quit when 23 years old, How many packs per day? less than a half pack, How many years have you smoked? 2-5 October 08, 2014 Last Colonoscopy: . 2012October 08, 2014 Use of recreational / street drugs? . Answer: No October 08, 2014 Do you have pets? . Status: Yes, Type: dog(s) October 08, 2014 Where or with whom do you live ? . with Son October 08, 2014 Marital Status: . October 08, 2014 Caffeine intake? . Status: Yes, What type: Soft Drinks October 08, 2014 Do you exercise? . Answer: No October 08, 2014 Flu Vaccine: . no October 08, 2014 Do you drink alcohol? . Status: No October 08, 2014 Vital Signs Date/Time: October 08, 2014 Weight 182 lbs Height 64 in Cardiac Monitoring Heart Rate 94 /min Blood Pressure Diastolic 70 mm Hg Blood Pressure Systolic 132 mm Hg Results Chest 2 views- Xray EKG Summary Purpose eClinicalWorks Submission
--- OUTSIDE RECORDS SUMMARY | 2018-10-15 18:56 | XMS REPORT ---
Author Author Re Olson [facility] eClinicalWorks Address Unknown Phone Unavailable Care Team Providers Care Recruiter Coordinator Name Role Phone Re Olson CP Unavailable Allergies, Adverse Reactions, Alerts Substance Reaction Event Type N.K.D.A. Info Not Available Non Drug Allergy Encounters Encounter Location Date DM [facility] Jun 30, 2013 DIAB CHK [facility] September 11, 2013 Diabetes/ Anxiety [facility] December 10, 2013 Venlafaxine prescription [facility] Dec 23, 2013 Test Results/MMG order [facility] May 09, 2013 Medication Refill [facility] May 28, 2013 DM [facility] May 01, 2013 BLADDER [facility] Apr 15, 2014 FOLLOW UP ON DIABETES [facility] Feb 16, 2014 2 week follow up [facility] Apr 09, 2014 Problems Problem Type Condition ICD-9 Code Onset Dates Condition Status 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 Assessment Abnormal urine odor 791.9 Active Problem Chronic pain 338.29 Active Problem Insomnia 780.52 Active Problem HTN (hypertension) 401.9 Active Problem Depression 311 Active Problem Hypothyroid 244.9 Active Problem Diabetes mellitus 250.00 Active Problem TMJ (dislocation of temporomandibular joint) 830.0 Active Medications Medication Code System Code Instructions Start Date End Date Status Dosage Cipro [facility] [address]-69 250 MG Orally Twice a day Apr 15, 2014 Apr 22, 2014 Active 1 tablet Lisinopril [facility] [address]-85 10 mg Orally Once a day Feb 16, 2014 Active 1 tablet Venlafaxine HCl ER [facility] [address]-13 150 MG Orally Once a day Jun 30, 2013 Active 1 capsule Meloxicam [facility] [address]-70 7.5 MG Orally Once a day Active 1 tablet Tizanidine HCl [facility] [address]-99 2 MG Orally every 8 hrs Active 1 tablet as needed MetFORMIN HCl ER [facility] [address]-40 500 mg Orally Once a day Feb 16, 2014 Active 1 tablet with evening meal Glimepiride [facility] [address]-40 4 MG Orally Once a day Active 2 tablet with breakfast or the first main meal of the day Pravastatin Sodium [facility] [address]-92 40 MG Orally Once a day Active 1 tablet Levothyroxine Sodium [facility] [address]-29 75 MCG Orally Once a day Active 1 tablet on an empty stomach in the morning Cranberry Plus Vitamin C [facility] 53035-[address]20 4200-20-3 MG-MG-UNIT Orally Active as directed Hydrocodone-Acetaminophen [facility] [address]-85 10-325 MG Orally every 6 hrs Active 1 tablet as needed Effexor XR [facility] [address]-79 75 mg Orally Once a day December 10, 2013 Active 1 capsule with food Social History Social History Element Qualifiers Date Reported Ethnicity . Status , Is tuvaluan your primary language? Yes Apr 15, 2014 children . 1 son Sarah Swift Apr 15, 2014 Tobacco Use: . Are [...] 2014 Occupation: . Disabled Apr 15, 2014 Vital Signs Date/Time: Apr 15, 2014 Weight 188 lbs Height 64 in Temperature 98.4 F Cardiac Monitoring Heart Rate 80 /min Blood Pressure Diastolic 86 mm Hg Blood Pressure Systolic 136 mm Hg Results URINE AUTO W/O SCOPE Spec Schneider(- ) 1.025 Turbidity(- ) Cloudy Glucose(- ) 2000 Ketones(- ) Large+++ Blood(- ) Large++ Bili(- ) Neg Color(- ) Dark Yellow pH(- ) 6.0 Leuk Est(- ) Neg Nitrite(- ) Pos Urobilinogen(- ) 0.2 Protein(- ) Trace Summary Purpose eClinicalWorks Submission
--- OUTSIDE RECORDS SUMMARY | 2018-10-15 18:56 | XMS REPORT ---
Author Author Veronika Echavarria [facility] eClinicalWorks Address Unknown Phone Unavailable Care Team Providers Care Register Repairer Name Role Phone Italia Veronika CP Unavailable Allergies, Adverse Reactions, Alerts Substance Reaction Event Type N.K.D.A. Info Not Available Non Drug Allergy Encounters Encounter Location Date DM [facility] Jun 30, 2013 DIAB CHK [facility] September 11, 2013 Diabetes/ Anxiety [facility] December 10, 2013 Venlafaxine prescription [facility] Dec 23, 2013 Test Results/MMG order [facility] May 09, 2013 Medication Refill [facility] May 28, 2013 DM [facility] May 01, 2013 BLADDER [facility] Apr 15, 2014 FOLLOW UP ON DIABETES [facility] Feb 16, 2014 2 week follow up [facility] Apr 09, 2014 Problems Problem Type Condition ICD-9 Code Onset Dates Condition Status Assessment HTN (hypertension) 401.9 Active 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 Assessment Diabetes mellitus 250.00 Active Assessment Depression 311 Active Problem Chronic pain 338.29 Active Problem Insomnia 780.52 Active Problem HTN (hypertension) 401.9 Active Problem Depression 311 Active Problem Hypothyroid 244.9 Active Problem Diabetes mellitus 250.00 Active Problem TMJ (dislocation of temporomandibular joint) 830.0 Active Medications Medication Code System Code Instructions Start Date End Date Status Dosage Januvia [facility] [address]-80 100 mg Orally Once a day Active 1 tablet Meloxicam [facility] [address]-45 7.5 MG Orally Once a day Active 1 tablet Glimepiride [facility] [address]-78 4 MG Orally Once a day Active 2 tablet with breakfast or the first main meal of the day Cranberry Plus Vitamin C [facility] 42534-[address]21 4200-20-3 MG-MG-UNIT Orally Active as directed Tizanidine HCl [facility] [address]-68 2 MG Orally every 8 hrs Active 1 tablet as needed Pravastatin Sodium [facility] [address]-10 40 MG Orally Once a day Active 1 tablet Levothyroxine Sodium [facility] [address]-72 75 MCG Orally Once a day Active 1 tablet on an empty stomach in the morning Zolpidem Tartrate [facility] [address]-72 5 MG Orally qhs December 10, 2013 Active 1 tablet at bedtime Effexor XR [facility] [address]-74 75 mg Orally Once a day December 10, 2013 Active 1 capsule with food MetFORMIN HCl ER [facility] [address]-36 500 mg Orally Once a day Feb 16, 2014 Active 1 tablet with evening meal Hydrocodone-Acetaminophen [facility] [address]-00 10-325 MG Orally every 6 hrs Active 1 tablet as needed Venlafaxine HCl ER [facility] [address]-03 150 MG Orally Once a day Jun 30, 2013 Active 1 capsule Lisinopril [facility] [address]-96 10 mg Orally Once a day Feb 16, 2014 Active 1 tablet Social History Social History Element Qualifiers Date Reported Ethnicity . Status , Is italian your primary language? Yes Apr 15, 2014 [...] Apr 15, 2014 Vital Signs Date/Time: Apr 09, 2014 Weight 200 lbs Height 64 in Cardiac Monitoring Heart Rate 76 /min Blood Pressure Diastolic 74 mm Hg Blood Pressure Systolic 120 mm Hg Summary Purpose eClinicalWorks Submission
--- OUTSIDE RECORDS SUMMARY | 2018-10-15 18:56 | XMS REPORT ---
Author Author Veronika Echavarria Organization eClinicalWorks Address Unknown Phone Unavailable Care Team Providers Care Buck Swamper Name Role Phone JonathanChintan Veronika CP Unavailable Encounters Encounter Location Date Test Results/MMG order 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
--- OUTSIDE RECORDS SUMMARY | 2018-10-15 18:56 | XMS REPORT ---
Author Author Sadaf Lu [facility] eClinicalWorks Address Unknown Phone Unavailable Care Team Providers Care Telegraph Inspector Name Role Phone Sadaf Lu CP Unavailable Allergies, Adverse Reactions, Alerts Substance Reaction Event Type N.K.D.A. Info Not Available Non Drug Allergy Encounters Encounter Location Date BLADDER [facility] Apr 15, 2014 2 week follow up [facility] Jul 08, 2014 Unknown [facility] July 26, 2014 follow up [facility] Jun 24, 2014 Unknown [facility] Jun 26, 2014 Unknown [facility] May 07, 2014 Refill [facility] May 29, 2014 Urine Infection [facility] Apr 29, 2014 NV U/A C&S [facility] May 04, 2014 Update Demographics - Personal Info [facility] August 26, 2014 DM [facility] Jun 30, 2013 DIAB CHK [facility] September 11, 2013 Diabetes/ Anxiety [facility] December 10, 2013 Venlafaxine prescription [facility] Dec 23, 2013 Test Results/MMG order [facility] May 09, 2013 Medication Refill [facility] May 28, 2013 DM [facility] May 01, 2013 SINUS AND ALLERGIES [facility] September 03, 2014 Update Demographics - Additional Info [facility] August 26, 2014 FOLLOW UP ON DIABETES [facility] Feb 16, 2014 2 week follow up [facility] Apr 09, 2014 LMOM -results - need to change ATB [facility] November 18, 2014 rib pain/ fu [facility] December 16, 2014 Unknown [facility] December 18, 2014 Carley Saucedo; 1955 [facility] September 10, 2014 MED REFILL [facility] October 08, 2014 ECHO-SADAF [facility] November 10, 2014 FOLLOW UP [facility] November 10, 2014 Problems Problem Type Condition ICD-9 Code Onset Dates Condition Status Problem Hypothyroid 244.9 Active Problem TMJ (dislocation of temporomandibular joint) 830.0 Active Problem Depression 311 Active Problem Hyperlipidemia 272.4 Active Problem Peripheral neuropathy 356.9 Active Problem Vitamin d deficiency 268.9 Active Problem Insomnia 780.52 Active Problem Diabetes mellitus 250.00 Active Problem HTN (hypertension) 401.9 Active Problem Chronic pain 338.29 Active Assessment Chronic pain 338.29 Active Assessment HTN (hypertension) 401.9 Active Assessment Urinary tract infection 599.0 Active Assessment Left anterior fascicular block 426.2 Active Assessment History of recent fall V15.88 Active Assessment Mild concentric left ventricular hypertrophy (LVH) 429.3 Active Assessment Rib pain on right side 786.50 Active 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 Medications Medication Code System Code Instructions Start Date End Date Status Dosage Gabapentin [facility] [address]-66 100 mg Orally three times a day (tid) Active 2 tablets Macrobid [facility] [address]-80 100 mg Orally every 12 hrs December 16, 2014 Dec 23, 2014 Active 1 capsule with food Glimepiride [facility] [address]-39 4 mg Orally Once a day Active 2 tablet with breakfast or the first main meal of the day MetFORMIN HCl ER [facility] [address]-98 500 mg Orally twice a day (bid) Feb 16, 2014 Active 1 tablet Lisinopril [facility] [address]-51 10 mg Orally Once a day Feb 16, 2014 Active 1 tablet Pravastatin Sodium [facility] [address]-46 80 mg Orally Once a day Active 1 tablet Levothyroxine Sodium [facility] [address]-81 75 MCG Orally Once a day Active 1 tablet on an empty stomach in the morning Baclofen [facility] [address]-85 50 MCG/ML Intrathecal daily Active 62.45 mg Tizanidine HCl [facility] [address]-05 2 MG Orally every 8 hrs Active 1 capsule as needed Hydrocodone-Acetaminophen [facility] [address]-10 10-325 MG Orally every 6 hrs Active 1 tablet as needed Venlafaxine HCl ER [facility] [address]-02 150 MG Orally Once a day Jun 30, 2013 Active 1 capsule Social History Social History Element Qualifiers Date Reported Occupation: . Disabled December 16, 2014 children . 1 son Sarah Swift December 16, 2014 Ethnicity . Status , Is swedish your primary language? Yes December 16, 2014 Tobacco Use: . Are you a: former smoker Quit when 23 years old, How many packs per day? less than a half pack, How many years have you smoked? 2-5 December 16, 2014 Last Colonoscopy: . 2012December 16, 2014 Use of recreational / street drugs? . Answer: No December 16, 2014 Do you have pets? . Status: Yes, Type: dog(s) December 16, 2014 Where or with whom do you live ? . with Son December 16, 2014 Marital Status: . December 16, 2014 Caffeine intake? . Status: Yes, What type: Soft Drinks December 16, 2014 Do you exercise? . Answer: No December 16, 2014 Flu Vaccine: . no December 16, 2014 Last Bone Density: . 2010December 16, 2014 Do you drink alcohol? . Status: No December 16, 2014 Vital Signs Date/Time: December 16, 2014 Weight 185 lbs Height 64 in Cardiac Monitoring Heart Rate 78 /min Blood Pressure Diastolic 64 mm Hg Blood Pressure Systolic 120 mm Hg Results URINE AUTO W/O SCOPE Spec [place](- ) 1.030 Turbidity(- ) cloudy Glucose(- ) neg Ketones(- ) neg Blood(- ) moderate Bili(- ) neg Color(- ) yellow pH(- ) 5.0 Leuk Est(- ) large Nitrite(- ) positive Urobilinogen(- ) 0.2 Protein(- ) trace Ribs Unil 2 View- Right Xray Summary Purpose eClinicalWorks Submission
--- OUTSIDE RECORDS SUMMARY | 2018-10-15 18:56 | XMS REPORT ---
Author Author Sadaf Lu [facility] eClinicalWorks Address Unknown Phone Unavailable Care Team Providers Care Spring Fitter Name Role Phone Sadaf Lu CP Unavailable Allergies, Adverse Reactions, Alerts Substance Reaction Event Type N.K.D.A. Info Not Available Non Drug Allergy Encounters Encounter Location Date BLADDER [facility] Apr 15, 2014 2 week follow up [facility] Jul 08, 2014 Unknown [facility] July 26, 2014 follow up [facility] Jun 24, 2014 Unknown [facility] Jun 26, 2014 Unknown [facility] May 07, 2014 Refill [facility] May 29, 2014 Urine Infection [facility] Apr 29, 2014 NV U/A C&S [facility] May 04, 2014 Update Demographics - Personal Info [facility] August 26, 2014 DM [facility] May 01, 2013 SINUS [facility] ALLERGIES [facility] [...] LMOM -results - need to change ATB [facility] November 18, 2014 rib pain/ fu [facility] December 16, 2014 Unknown [facility] December 18, 2014 fu [facility] Jan 01, 2015 Carley Saucedo; 1955 [facility] September 10, 2014 MED REFILL [facility] October 08, 2014 MYA-SADAF [facility] November 10, 2014 FOLLOW UP [facility] November 10, 2014 Problems Problem Type Condition ICD-9 Code Onset Dates Condition Status Problem Hypothyroid 244.9 Active Problem TMJ (dislocation of temporomandibular joint) 830.0 Active Problem Depression 311 Active Assessment Urinary tract infection 599.0 Active 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 Problem Hyperlipidemia 272.4 Active Problem Peripheral neuropathy 356.9 Active Problem Vitamin d deficiency 268.9 Active Problem Insomnia 780.52 Active Problem Diabetes mellitus 250.00 Active Problem HTN (hypertension) 401.9 Active Problem Chronic pain 338.29 Active Medications Medication Code System Code Instructions Start Date End Date Status Dosage Hydrocodone-Acetaminophen [facility] [address]-58 10-325 MG Orally every 6 hrs Active 1 tablet as needed Gabapentin [facility] [address]-75 100 mg Orally three times a day (tid) Active 2 tablets Venlafaxine HCl ER [facility] [address]-80 150 MG Orally Once a day Jun 30, 2013 Active 1 capsule Glimepiride [facility] [address]-39 4 mg Orally Once a day Active 2 tablet with breakfast or the first main meal of the day Tizanidine HCl [facility] [address]-33 2 MG Orally every 8 hrs Active 1 capsule as needed Pravastatin Sodium [facility] [address]-39 80 mg Orally Once a day Active 1 tablet Lisinopril [facility] [address]-91 10 mg Orally Once a day Feb 16, 2014 Active 1 tablet Levothyroxine Sodium [facility] [address]-56 75 MCG Orally Once a day Active 1 tablet on an empty stomach in the morning MetFORMIN HCl ER [facility] [address]-35 500 mg Orally twice a day (bid) Feb 16, 2014 Active 1 tablet Social History Social History Element Qualifiers Date Reported Occupation: . Disabled Jan 01, 2015 children . 1 son - Jamison Jan 01, 2015 Ethnicity . Status , Is romansh your primary language? Yes Jan 01, 2015 Tobacco Use: . Are you a: former smoker Quit when 23 years old, How many packs per day? less than a half pack, How many years have you smoked? 2-5 Jan 01, 2015 Last Colonoscopy: . 2012Jan 01, 2015 Use of recreational / street drugs? . Answer: No Jan 01, 2015 Do you have pets? . Status: Yes, Type: dog(s) Jan 01, 2015 Where or with whom do you live ? . with Son Jan 01, 2015 Marital Status: . Jan 01, 2015 Caffeine intake? . Status: Yes, What type: Soft Drinks Jan 01, 2015 Do you exercise? . Answer: No Jan 01, 2015 Flu Vaccine: . no Jan 01, 2015 Last Bone Density: . 2010Jan 01, 2015 Do you drink alcohol? . Status: No Jan 01, 2015 Summary Purpose eClinicalWorks Submission
--- OUTSIDE RECORDS SUMMARY | 2018-10-15 18:56 | XMS REPORT ---
Author Author Kassie Milian [facility] eClinicalWorks Address Unknown Phone Unavailable Care Team Providers Care Information Systems Security Specialist Name Role Phone Kassie Milian CP Unavailable Allergies, Adverse Reactions, Alerts Substance Reaction Event Type N.K.D.A. Info Not Available Non Drug Allergy Encounters Encounter Location Date BLADDER [facility] Apr 15, 2014 Cardiolyte Stress Test [facility] Feb 03, 2015 2 week follow up [facility] Jul 08, 2014 Unknown [facility] July 26, 2014 follow up [facility] Jun 24, 2014 Unknown [facility] Jun 26, 2014 Unknown [facility] May 07, 2014 Refill [facility] May 29, 2014 Urine Infection [facility] Apr 29, 2014 NV U/A C&S [facility] May 04, 2014 Update Demographics - Personal Info [facility] August 26, 2014 DM [facility] Jun 30, 2013 DIAB CHK [facility] September 11, 2013 Diabetes/ Anxiety [facility] December 10, 2013 Venlafaxine prescription [facility] Dec 23, 2013 Test Results/MMG order [facility] May 09, 2013 Medication Refill [facility] May 28, 2013 DM [facility] May 01, 2013 SINUS AND ALLERGIES [facility] September 03, 2014 Update Demographics - Additional Info [facility] August 26, 2014 FOLLOW UP ON DIABETES [facility] Feb 16, 2014 2 week follow up [facility] Apr 09, 2014 LMOM -results - need to change ATB [facility] November 18, 2014 rib pain/ fu [facility] December 16, 2014 Unknown [facility] December 18, 2014 fu [facility] Jan 01, 2015 Carley Saucedo; [id number] [facility] [...] 830.0 Active Problem Depression 311 Active Assessment Left anterior fascicular block 426.2 Active 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 Problem Hyperlipidemia 272.4 Active Problem Peripheral neuropathy 356.9 Active Problem Vitamin d deficiency 268.9 Active Problem Insomnia 780.52 Active Problem Diabetes mellitus 250.00 Active Problem HTN (hypertension) 401.9 Active Problem Chronic pain 338.29 Active Medications Medication Code System Code Instructions Start Date End Date Status Dosage Pravastatin Sodium [facility] [address]-01 80 mg Orally Once a day Active 1 tablet Glimepiride [facility] [address]-55 4 mg Orally Once a day Active 2 tablet with breakfast or the first main meal of the day Levothyroxine Sodium [facility] [address]-41 75 MCG Orally Once a day Active 1 tablet on an empty stomach in the morning Gabapentin [facility] [address]-99 100 mg Orally three times a day (tid) Active 2 tablets Lisinopril [facility] [address]-17 10 mg Orally Once a day Feb 16, 2014 Active 1 tablet MetFORMIN HCl ER [facility] [address]-34 500 mg Orally twice a day (bid) Feb 16, 2014 Active 1 tablet Venlafaxine HCl ER [facility] [address]-20 150 MG Orally Once a day Jun 30, 2013 Active 1 capsule Tizanidine HCl [facility] [address]-47 2 MG Orally every 8 hrs Active 1 capsule as needed Hydrocodone-Acetaminophen [facility] [address]-47 10-325 MG Orally every 6 hrs Active 1 tablet as needed Social History Social History Element Qualifiers Date Reported Occupation: . Disabled Feb 03, 2015 children . 1 son - Jamison Feb 03, 2015 Ethnicity . Status , Is rwandan your primary language? Yes Feb 03, 2015 Tobacco Use: . Are you a: former smoker Quit when 23 years old, How many packs per day? less than a half pack, How many years have you smoked? 2-5 Feb 03, 2015 Last Colonoscopy: . 2012Feb 03, 2015 Use of recreational / street drugs? . Answer: No Feb 03, 2015 Do you have pets? . Status: Yes, Type: dog(s) Feb 03, 2015 Where or with whom do you live ? . with Son Feb 03, 2015 Marital Status: . Feb 03, 2015 Caffeine intake? . Status: Yes, What type: Soft Drinks Feb 03, 2015 Do you exercise? . Answer: No Feb 03, 2015 Flu Vaccine: . no Feb 03, 2015 Last Bone Density: . 2010Feb 03, 2015 Do you drink alcohol? . Status: No Feb 03, 2015 Vital Signs Date/Time: Feb 03, 2015 Weight 185 lbs Height 64 in Cardiac Monitoring Heart Rate 76 /min Blood Pressure Diastolic 76 mm Hg Blood Pressure Systolic 134 mm Hg Summary Purpose eClinicalWorks Submission
--- OUTSIDE RECORDS SUMMARY | 2018-10-15 18:56 | XMS REPORT ---
Author Author Veronika Echavarria [facility] eClinicalWorks Address Unknown Phone Unavailable Care Team Providers Care Crab Steamer Name Role Phone Veronika Echavarria CP Unavailable Encounters Encounter Location Date DM [facility] Jun 30, 2013 DIAB CHK [facility] September 11, 2013 Diabetes/ Anxiety [facility] December 10, 2013 Venlafaxine prescription [facility] Dec 23, 2013 Test Results/MMG order [facility] May 09, 2013 Medication Refill [facility] May 28, 2013 DM [facility] May 01, 2013 Problems Problem Type Condition ICD-9 Code Onset Dates Condition Status Assessment Anxiety 300.00 Active Problem Insomnia 780.52 Active Problem Diabetes mellitus 250.00 Active Problem Chronic pain 338.29 Active Problem Hypothyroid 244.9 Active 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 1 son - Jamison December 10, 2013 Tobacco Use: . Are you a: former smoker Quit when 23 years old, How many packs per day? less than a half pack, How many years have you smoked? 2-5 December 10, 2013 Use of recreational / street drugs? . Answer: No December 10, 2013 Where or with whom do you live ? . with Son December 10, 2013 Do you have pets? . Status: Yes, Type: dog(s) December 10, 2013 Marital Status: . December 10, 2013 Caffeine intake? . Status: Yes, What type: Soft Drinks December 10, 2013 Do you exercise? . Answer: No December 10, 2013 Do you drink alcohol? . Status: No December 10, 2013 Occupation: . Disabled December 10, 2013 Summary Purpose eClinicalWorks Submission
--- OUTSIDE RECORDS SUMMARY | 2018-10-15 18:56 | XMS REPORT ---
Author Author Veronika Echavarria [facility] eClinicalWorks Address Unknown Phone Unavailable Care Team Providers Care Striper Machine Name Role Phone Italai Veronika CP Unavailable Allergies, Adverse Reactions, Alerts Substance Reaction Event Type N.K.D.A. Info Not Available Non Drug Allergy Encounters Encounter Location Date DM [facility] Jun 30, 2013 DIAB CHK [facility] September 11, 2013 Test Results/MMG order [facility] May 09, 2013 Medication Refill [facility] May 28, 2013 DM [facility] May 01, 2013 Problems Problem Type Condition ICD-9 Code Onset Dates Condition Status Assessment UTI (lower urinary tract infection) 599.0 Active Assessment Diabetes mellitus 250.00 Active Assessment TMJ (dislocation of temporomandibular joint) 830.0 Active Problem Insomnia 780.52 Active Problem Diabetes mellitus 250.00 Active Problem Chronic pain 338.29 Active Problem Hypothyroid 244.9 Active 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 Problem TMJ (dislocation of temporomandibular joint) 830.0 Active Problem Depression 311 Active Medications Medication Code System Code Instructions Start Date End Date Status Dosage Pravastatin Sodium [facility] [address]-25 40 MG Orally Once a day Active 1 tablet Levothyroxine Sodium [facility] [address]-42 75 MCG Orally Once a day Active 1 tablet on an empty stomach in the morning Glimepiride [facility] [address]-09 4 MG Orally Once a day Active 2 tablet with breakfast or the first main meal of the day Januvia [facility] [address]-27 100 mg Orally Once a day Active 1 tablet Meloxicam [facility] [address]-12 7.5 MG Orally Once a day Active 1 tablet Hydrocodone-Acetaminophen [facility] [address]-56 10-325 MG Orally every 6 hrs Active 1 tablet as needed Cipro [facility] [address]-52 250 MG Orally Twice a day September 11, 2013 September 18, 2013 Active 1 tablet Bydureon Unknown 0 2mg subcutaneous weekly Jun 30, 2013 Active 2 mg Venlafaxine HCl ER [facility] [address]-63 150 MG Orally Once a day Jun 30, 2013 Active 1 capsule Cranberry Plus Vitamin C [facility] 0[address]798 4200-20-3 MG-MG-UNIT Orally Active as directed Social History Social History Element Qualifiers Date Reported children . 1 son Sarah Swift September 11, 2013 Tobacco Use: . Are you a: former smoker Quit when 23 years old, How many packs per day? less than a half pack, How many years have you smoked? 2-5 September 11, 2013 Use of recreational / street drugs? . Answer: No September 11, 2013 Where or with whom do you live ? . with Son September 11, 2013 Do you have pets? . Status: Yes, Type: dog(s) September 11, 2013 Marital Status: . September 11, 2013 Caffeine intake? . Status: Yes, What type: Soft Drinks September 11, 2013 Do you exercise? . Answer: No September 11, 2013 Do you drink alcohol? . Status: No September 11, 2013 Occupation: . Disabled September 11, 2013 Vital Signs Date/Time: September 11, 2013 Weight 202 lbs Height 64 in Cardiac Monitoring Heart Rate 82 /min Blood Pressure Diastolic 86 mm Hg Blood Pressure Systolic 138 mm Hg Results Urine Culture, Routine Please note(- ) Comment Urine Culture, Routine(- ) Final report Result 1(- ) No growth Hemoglobin A1c Hemoglobin A1c(-4.8-5.6 %) 7.5 Urinalysis, Routine Glucose(-Negative ) 3+ Protein(-Negative/Trace ) Negative Occult Blood(-Negative ) Negative Ketones(-Negative ) Negative Urobilinogen,Semi-Qn(-0.0-1.9 mg/dL) 0.2 Nitrite, Urine(-Negative ) Negative Bilirubin(-Negative ) Negative Appearance(-Clear ) Clear WBC Esterase(-Negative ) Negative pH(-5.0-7.5 ) 6.0 Microscopic Examination(- ) Comment Urine-Color(-Yellow ) Yellow Specific [place](-1.005-1.030 ) 1.023 Summary Purpose eClinicalWorks Submission
--- OUTSIDE RECORDS SUMMARY | 2018-10-15 18:56 | XMS REPORT ---
Author Author Veronika Echavarria [facility] eClinicalWorks Address Unknown Phone Unavailable Care Team Providers Care Audio Narrator Name Role Phone Italia Veronika CP Unavailable Allergies, Adverse Reactions, Alerts Substance Reaction Event Type N.K.D.A. Info Not Available Non Drug Allergy Encounters Encounter Location Date DM [facility] Jun 30, 2013 DIAB CHK [facility] September 11, 2013 Diabetes/ Anxiety [facility] December 10, 2013 Venlafaxine prescription [facility] Dec 23, 2013 Test Results/MMG order [facility] May 09, 2013 Medication Refill [facility] May 28, 2013 DM [facility] May 01, 2013 Problems Problem Type Condition ICD-9 Code Onset Dates Condition Status Assessment Monilia infection 112.9 Active Assessment Diabetes mellitus 250.00 Active Assessment Anxiety 300.00 Active Assessment Insomnia 780.52 Active Problem Insomnia 780.52 Active Problem Diabetes mellitus 250.00 Active Problem Chronic pain 338.29 Active Problem Hypothyroid 244.9 Active 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 Problem TMJ (dislocation of temporomandibular joint) 830.0 Active Problem Depression 311 Active Medications Medication Code System Code Instructions Start Date End Date Status Dosage Januvia MEDIAN [address]-91 100 mg Orally Once a day Active 1 tablet Cranberry Plus Vitamin C [facility] 19331-[address]00 4200-20-3 MG-MG-UNIT Orally Active as directed Pravastatin Sodium [facility] [address]-02 40 MG Orally Once a day Active 1 tablet Hydrocodone-Acetaminophen [facility] [address]-72 10-325 MG Orally every 6 hrs Active 1 tablet as needed Meloxicam [facility] [address]-58 7.5 MG Orally Once a day Active 1 tablet Glimepiride [facility] [address]-61 4 MG Orally Once a day Active 2 tablet with breakfast or the first main meal of the day Zolpidem Tartrate [facility] [address]-38 5 MG Orally qhs December 10, 2013 Active 1 tablet at bedtime Venlafaxine HCl ER [facility] [address]-39 150 MG Orally Once a day Jun 30, 2013 Active 1 capsule Levothyroxine Sodium [facility] [address]-06 75 MCG Orally Once a day Active 1 tablet on an empty stomach in the morning Effexor XR [facility] [address]-71 75 mg Orally Once a day December 10, 2013 Active 1 capsule with food Social History Social History Element Qualifiers Date Reported children . 1 son Sarah Swift December 10, 2013 Tobacco Use: . Are [...] 2013 Occupation: . Disabled December 10, 2013 Vital Signs Date/Time: December 10, 2013 Weight 206 lbs Height 64 in Temperature 98.2 F Cardiac Monitoring Heart Rate 80 /min Blood Pressure Diastolic 82 mm Hg Blood Pressure Systolic 120 mm Hg Summary Purpose eClinicalWorks Submission
--- OUTSIDE RECORDS SUMMARY | 2018-10-15 18:56 | XMS REPORT ---
Author Author ItaliaVeronika Organization eClinicalWorks Address Unknown Phone Unavailable Care Team Providers Care Director Of Purchasing Name Role Phone Veronika Echavarria CP Unavailable Encounters Encounter Location Date DM [facility] Jun 30, 2013 DIAB CHK [facility] September 11, 2013 Diabetes/ Anxiety [facility] December 10, 2013 Venlafaxine prescription [facility] Dec 23, 2013 Test Results/MMG order [facility] May 09, 2013 Medication Refill [facility] May 28, 2013 DM [facility] May 01, 2013 BLADDER [facility] Apr 15, 2014 FOLLOW UP ON DIABETES [facility] Feb 16, 2014 2 week follow up [facility] Apr 09, 2014 Unknown [facility] May 07, 2014 Refill [facility] May 29, 2014 Urine Infection [facility] Apr 29, 2014 NV U/A C&S [facility] May 04, 2014 Social History Social History Element Qualifiers Date Reported Ethnicity . Status , Is indonesian your primary language? Yes Apr 15, 2014 [...]
--- OUTSIDE RECORDS SUMMARY | 2018-10-15 18:56 | XMS REPORT ---
Author Author Veronika Tena [facility] eClinicalWorks Address Unknown Phone Unavailable Care Team Providers Care Janitorial Tech Name Role Phone Veronika Tena Unavailable Encounters Encounter Location Date BLADDER [facility] Apr 15, 2014 2 week follow up [facility] Jul 08, 2014 Unknown [facility] July 26, 2014 follow up [facility] Jun 24, 2014 Unknown [facility] Jun 26, 2014 Unknown [facility] May 07, 2014 Refill [facility] May 29, 2014 Urine Infection [facility] Apr 29, 2014 NV U/A C&S [facility] May 04, 2014 Update Demographics - Personal Info [facility] August 26, 2014 DM [facility] May 01, 2013 SINUS AND ALLERGIES [facility] September 03, 2014 Update Demographics - Additional Info [facility] August 26, 2014 FOLLOW UP ON DIABETES [facility] Feb 16, 2014 2 week follow up [facility] Apr 09, 2014 LMOM -results - need to change ATB [facility] November 18, 2014 Carley Saucedo; 1955 [facility] September 10, 2014 MED REFILL [facility] October 08, 2014 ECHO-SADAF [facility] November 10, 2014 FOLLOW UP [facility] November 10, 2014 Problems Problem Type Condition ICD-9 Code Onset Dates Condition Status Problem Hypothyroid 244.9 Active Problem TMJ (dislocation of temporomandibular joint) 830.0 Active Problem Depression 311 Active 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 Disabled November 10, 2014 children . 1 son - Jamison November 10, 2014 Ethnicity . Status , Is frisian your primary language? Yes November 10, 2014 Tobacco Use: . Are you a: former smoker Quit when 23 years old, How many packs per day? less than a half pack, How many years have you smoked? 2-5 November 10, 2014 Last Colonoscopy: . 2012November 10, 2014 Use of recreational / street drugs? . Answer: No November 10, 2014 Do you have pets? . Status: Yes, Type: dog(s) November 10, 2014 Where or with whom do you live ? . with Son November 10, 2014 Marital Status: . November 10, 2014 Caffeine intake? . Status: Yes, What type: Soft Drinks November 10, 2014 Do you exercise? . Answer: No November 10, 2014 Flu Vaccine: . no November 10, 2014 Do you drink alcohol? . Status: No November 10, 2014 Summary Purpose eClinicalWorks Submission
--- OUTSIDE RECORDS SUMMARY | 2018-10-15 18:56 | XMS REPORT ---
Author Author Veronika Echavarria [facility] eClinicalWorks Address Unknown Phone Unavailable Care Team Providers Care Document Processor Name Role Phone JonathanChintan Veronika CP Unavailable Allergies, Adverse Reactions, Alerts Substance Reaction Event Type N.K.D.A. Info Not Available Non Drug Allergy Encounters Encounter Location Date DM [facility] Jun 30, [address] [facility] September 11, 2013 Diabetes/ Anxiety [facility] December 10, [address] [facility] Dec 23, 2013 Test Results/MMG order [facility] May 09, [address] [facility] May 28, [address] [facility] May 01, 2013 FOLLOW UP ON DI[address]ETES 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 Assessment Cephalgia 784.0 Active Assessment Chronic pain 338.29 Active Assessment Diabetes mellitus 250.00 Active Problem Chronic pain 338.29 Active Problem Insomnia 780.52 Active Problem HTN (hypertension) 401.9 Active Problem Depression 311 Active Problem Hypothyroid 244.9 Active Problem Diabetes mellitus 250.00 Active Problem TMJ (dislocation of temporomandibular joint) 830.0 Active Medications Medication Code System Code Instructions Start Date End Date Status Dosage Hydrocodone-Acetaminophen [facility] [address]-17 10-325 MG Orally every 6 hrs Active 1 tablet as needed Meloxicam [facility] [address]-71 7.5 MG Orally Once a day Active 1 tablet Glimepiride [facility] [address]-67 4 MG Orally Once a day Active 2 tablet with breakfast or the first main meal of the day Januvia [facility] [address]-75 100 mg Orally Once a day Active 1 tablet Pravastatin Sodium [facility] [address]-65 40 MG Orally Once a day Active 1 tablet Cranberry Plus Vitamin C [facility] 9[address] 4200-20-3 MG-MG-UNIT Orally Active as directed Effexor XR [facility] [address]-73 75 mg Orally Once a day December 10, 2013 Active 1 capsule with food MetFORMIN HCl ER [facility] [address]-20 500 mg Orally Once a day Feb 16, 2014 Active 1 tablet with evening meal Venlafaxine HCl ER [facility] [address]-52 150 MG Orally Once a day Jun 30, 2013 Active 1 capsule Zolpidem Tartrate [facility] [address]-22 5 MG Orally qhs December 10, 2013 Active 1 tablet at bedtime Levothyroxine Sodium [facility] [address]-18 75 MCG Orally Once a day Active 1 tablet on an empty stomach in the morning Lisinopril [facility] [address]-26 10 mg Orally Once a day Feb 16, 2014 Active 1 tablet Social History Social History Element Qualifiers Date Reported Ethnicity . Status , Is croatian your primary language? Yes Feb 16, 2014 children . 1 son - Jamison Feb 16, 2014 Tobacco Use: . Are you a: former smoker Quit when 23 years old, How many packs per day? less than a half pack, How many years have you smoked? 2-5 Feb 16, 2014 Use of recreational / street drugs? . Answer: No Feb 16, 2014 Where or with whom do you live ? . with Son Feb 16, 2014 Do you have pets? . Status: Yes, Type: dog(s) Feb 16, 2014 Marital Status: . Feb 16, 2014 Caffeine intake? . Status: Yes, What type: Soft Drinks Feb 16, 2014 Do you exercise? . Answer: No Feb 16, 2014 Do you drink alcohol? . Status: No Feb 16, 2014 Occupation: . Disabled Feb 16, 2014 Vital Signs Date/Time: Feb 16, 2014 Weight 200 lbs Height 64 in Cardiac Monitoring Heart Rate 88 /min Blood Pressure Diastolic 100 mm Hg Blood Pressure Systolic 160 mm Hg Summary Purpose eClinicalWorks Submission
--- OUTSIDE RECORDS SUMMARY | 2018-10-15 18:56 | XMS REPORT ---
Author Author Veronika Echavarria [facility] eClinicalWorks Address Unknown Phone Unavailable Care Team Providers Care Flaker Tender Name Role Phone Veronika Echavarria Unavailable Encounters Encounter Location Date DM [facility] Jun 30, 2013 Test Results/MMG order [facility] May 09, 2013 Medication Refill [facility] May 28, 2013 DM [facility] May 01, 2013 Problems Problem Type Condition ICD-9 Code Onset Dates Condition Status Assessment Hypothyroid 244.9 Active Assessment Diabetes mellitus 250.00 Active Assessment Depression 311 Active Assessment Insomnia 780.52 Active Assessment Chronic pain 338.29 Active Problem Insomnia 780.52 Active Problem Diabetes mellitus 250.00 Active Problem Chronic pain 338.29 Active Problem Hypothyroid 244.9 Active 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 Problem TMJ (dislocation of temporomandibular joint) 830.0 Active Problem Depression 311 Active Medications Medication Code System Code Instructions Start Date End Date Status Dosage Byduremarshall CRUM 08190 2mg subcutaneous weekly Jun 30, 2013 Active 2 mg Pravastatin Sodium [facility] [address]-59 40 MG Orally Once a day Active 1 tablet Cranberry Plus Vitamin C [facility] 58[address]319 4200-20-3 MG-MG-UNIT Orally Active as directed Venlafaxine HCl ER [facility] [address]-33 150 MG Orally Once a day Jun 30, 2013 Active 1 capsule Glimepiride [facility] [address]-94 4 MG Orally Once a day Active 2 tablet with breakfast or the first main meal of the day Levothyroxine Sodium [facility] [address]-28 75 MCG Orally Once a day Active 1 tablet on an empty stomach in the morning Hydrocodone-Acetaminophen [facility] [address]-33 10-325 MG Orally every 6 hrs Active 1 tablet as needed Venlafaxine HCl ER [facility] [address]-34 150 MG Orally Once a day Inactive 2 tablet with food Meloxicam [facility] [address]-90 7.5 MG Orally Once a day Active 1 tablet Caitlin [facility] [address]-79 100 MG Orally Once a day Active 1 tablet Social History Social History Element Qualifiers Date Reported Where or with whom do you live ? . with Son Jun 30, 2013 children . 1 son - Jamison Jun 30, 2013 Tobacco Use: . Are you a: former smoker Quit when 23 years old, How many packs per day? less than a half pack, How many years have you smoked? 2-5 Jun 30, 2013 Marital Status: . Jun 30, 2013 Do you drink alcohol? . Status: No Jun 30, 2013 Occupation: . Disabled Jun 30, 2013 Family history Qualifier Description Comment Date Reported Mother alive diabetes Jun 30, 2013 Siblings alive Sister-breast cancer Jun 30, 2013 Father heart attack Jun 30, 2013 Maternal Grandmother breast cancer Jun 30, 2013 Vital Signs Date/Time: Jun 30, 2013 Weight 210 lbs Height 64 inches Cardiac Monitoring Heart Rate 82 Beats per Minute Blood Pressure Diastolic 70 mm Hg Blood Pressure Systolic 120 mm Hg Summary Purpose eClinicalWorks Submission
--- OUTSIDE RECORDS SUMMARY | 2018-10-15 18:56 | XMS REPORT ---
Author Author Veronika cEhavarria [facility] eClinicalWorks Address Unknown Phone Unavailable Care Team Providers Care Rotary Driller Helper Name Role Phone Veronika Echavarria Unavailable Encounters Encounter Location Date DM [facility] May 01, 2013 BLADDER [facility] Apr 15, 2014 FOLLOW UP ON DIABETES [facility] Feb 16, 2014 2 week follow up [facility] Apr 09, 2014 Unknown [facility] May 07, 2014 Urine Infection [facility] [...] Date Reported Ethnicity . Status , Is slovak your primary language? Yes Apr 15, 2014 [...]
--- OUTSIDE RECORDS SUMMARY | 2018-10-15 18:57 | XMS REPORT ---
Author Author Kevyn March [facility] eClinicalWorks Address Unknown Phone Unavailable Care Team Providers Care Territory Supervisor Name Role Phone Kevyn March Unavailable Encounters Encounter Location Date BLADDER [facility] Apr 15, 2014 Unknown [facility] Apr 06, 2015 medication refills/ sinus [facility] Mar 31, 2015 Cardiolyte Stress Test [facility] Feb 03, 2015 Unknown [facility] July 27, 2016 2 week follow up [facility] Jul 08, 2014 Unknown [facility] July 26, 2014 lab results [facility] Apr 21, 2015 follow up [facility] Jun 24, 2014 Unknown [facility] May 03, 2015 Unknown [facility] Jun 26, 2014 Unknown [facility] May 07, 2014 Refill [facility] May 29, 2014 Urine Infection [facility] Apr 29, 2014 NV U/A C&S [facility] May 04, 2014 Update Demographics - Personal Info [facility] August 26, 2014 DM [facility] Jun 30, 2013 DIAB CHK [facility] September 11, 2013 Diabetes/ Anxiety [facility] December 10, 2013 Venlafaxine prescription [facility] Dec 23, 2013 Test Results/MMG order [facility] May 09, 2013 Medication Refill [facility] May 28, 2013 DM [facility] May 01, 2013 SINUS AND ALLERGIES [facility] September 03, 2014 Update Demographics - Additional Info [facility] August 26, 2014 FOLLOW UP ON DIABETES [facility] Feb 16, 2014 2 week follow up [facility] Apr 09, 2014 LMOM -results - need to change ATB [facility] November 18, 2014 rib pain/ fu [facility] December 16, 2014 Unknown [facility] December 18, 2014 fu [facility] Jan 01, 2015 Carley Saucedo; 1955 [facility] September 10, 2014 MED REFILL [facility] October 08, 2014 ECHO-SADAF [facility] November 10, 2014 FOLLOW UP [facility] November 10, 2014 Problems Problem Type Condition ICD-9 Code Onset Dates Condition Status Problem Lumbosacral radiculopathy M54.17 Active Problem 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 . Answer: No Jul 18, 2016 Tobacco Use: . Are you a:: never smoker Jul 18, 2016 Marital Status: . Jul 18, 2016 Do you exercise? . Answer: No Jul 18, 2016 Do you drink alcohol? . Status: No Jul 18, 2016 Occupation: . disabled Jul 18, 2016 Summary Purpose eClinicalWorks Submission
--- OUTSIDE RECORDS SUMMARY | 2018-10-15 18:57 | XMS REPORT ---
Author Author Hafsa Marcum Organization [employer] Address Unknown Phone Unavailable Care Team Providers Care System Manager Name Role Phone Hafsa Marcum CP Unavailable Allergies, Adverse Reactions, Alerts Substance Reaction Event Type N.K.D.A. Info Not Available Non Drug Allergy Encounters Encounter Location Date BLADDER [facility] Apr 15, 2014 medication refills/ sinus [facility] Mar 31, 2015 Cardiolyte Stress Test [facility] Feb 03, 2015 2 week follow up [facility] Jul 08, 2014 Unknown [facility] July 26, 2014 follow up [facility] Jun 24, 2014 Unknown [facility] Jun 26, 2014 Unknown [facility] May 07, 2014 Refill [facility] May 29, 2014 Urine Infection [facility] Apr 29, 2014 NV U/A C&S [facility] May 04, 2014 Update Demographics - Personal Info [facility] August 26, 2014 DM [facility] Jun 30, 2013 DIAB CHK [facility] September 11, 2013 Diabetes/ Anxiety [facility] December 10, 2013 Venlafaxine prescription [facility] Dec 23, 2013 Test Results/MMG order [facility] May 09, 2013 Medication Refill [facility] May 28, 2013 DM [facility] May 01, 2013 SINUS AND ALLERGIES [facility] September 03, 2014 Update Demographics - Additional Info [facility] August 26, 2014 FOLLOW UP ON DIABETES [facility] Feb 16, 2014 2 week follow up [facility] Apr 09, 2014 LMOM -results - need to change ATB [facility] November 18, 2014 rib pain/ fu [facility] December 16, 2014 Unknown [facility] December 18, 2014 fu [facility] Jan 01, 2015 Carley Saucedo; 10--1955 [facility] September 10, 2014 MED REFILL [facility] October 08, 2014 MYA-SADAF [facility] November 10, 2014 FOLLOW UP [facility] November 10, 2014 Problems Problem Type Condition ICD-9 Code Onset Dates Condition Status Problem Peripheral neuropathy G62.9 Active Problem Insomnia G47.00 Active Problem HTN (hypertension) I10 Active Problem TMJ (dislocation of temporomandibular joint) S03.0XXA Active Problem Depression F32.9 Active Problem Diabetes E11.9 Active Problem Arachnoiditis G03.9 Active Problem Chronic pain G89.29 Active Problem Hypothyroidism E03.9 Active Problem Low back pain M54.5 Active Assessment Acute sinusitis, unspecified J01.90 Active Assessment Hyperlipidemia E78.5 Active Assessment Depression F32.9 Active Assessment Hypothyroidism E03.9 Active Assessment Diabetes E11.9 Active Assessment Peripheral neuropathy G62.9 Active Problem Hyperlipidemia E78.5 Active Assessment HTN (hypertension) I10 Active Problem Vitamin D deficiency E55.9 Active Medications Medication Code System Code Instructions Start Date End Date Status Dosage Baclofen [facility] [address]-69 50 MCG/ML Intrathecal daily Active 62.45 mg Tizanidine HCl [facility] [address]-96 2 MG Orally every 8 hrs Active 1 capsule as needed Hydrocodone-Acetaminophen [facility] [address]-52 10-325 MG Orally every 6 hrs Active 1 tablet as needed Levothyroxine Sodium [facility] [address]-89 75 MCG Orally Once a day Active 1 tablet on an empty stomach in the morning MetFORMIN HCl ER [facility] [address]-29 500 mg Orally twice a day (bid) Feb 16, 2014 Active 1 tablet Glimepiride [facility] [address]-12 4 mg Orally Once a day Active 2 tablet with breakfast or the first main meal of the day Venlafaxine HCl ER [facility] [address]-47 150 MG Orally Once a day Jun 30, 2013 Active 1 capsule Lisinopril [facility] [address]-33 10 mg Orally Once a day Feb 16, 2014 Active 1 tablet Omnicef Unknown 0 300 MG Orally every 12 hrs Mar 31, 2015 Apr 10, 2015 Active 1 capsule Gabapentin [facility] [address]-92 100 mg Orally three times a day (tid) Active 2 tablets Pravastatin Sodium [facility] [address]-85 80 mg Orally Once a day Active 1 tablet Social History Social History Element Qualifiers Date Reported Occupation: . Disabled Mar 31, 2015 children . 1 son - Jamison Mar 31, 2015 Ethnicity . Status , Is italian your primary language? Yes Mar 31, 2015 Tobacco Use: . Are you a: former smoker Quit when 23 years old, How many packs per day? less than a half pack, How many years have you smoked? 2-5 Mar 31, 2015 Last Colonoscopy: . 2012Mar 31, 2015 Use of recreational / street drugs? . Answer: No Mar 31, 2015 Do you have pets? . Status: Yes, Type: dog(s) Mar 31, 2015 Where or with whom do you live ? . with Son Mar 31, 2015 Marital Status: . Mar 31, 2015 Caffeine intake? . Status: Yes, What type: Soft Drinks Mar 31, 2015 Do you exercise? . Answer: No Mar 31, 2015 Flu Vaccine: . no Mar 31, 2015 Last Bone Density: . 2010Mar 31, 2015 Do you drink alcohol? . Status: No Mar 31, 2015 Family history Qualifier Description Comment Date Reported Maternal Grandmother breast cancer Mar 31, 2015 Paternal Grandmother Comment not available Mar 31, 2015 Siblings alive Sister-breast cancer Mar 31, 2015 Maternal Grandfather Comment not available Mar 31, 2015 Children Comment not available Mar 31, 2015 Father heart attack Mar 31, 2015 Paternal Grandfather Comment not available Mar 31, 2015 Mother alive diabetes Mar 31, 2015 Other: Comment not available Mar 31, 2015 Vital Signs Date/Time: Mar 31, 2015 Weight 193 lbs Height 64 in Cardiac Monitoring Heart Rate 76 /min Blood Pressure Diastolic 74 mm Hg Blood Pressure Systolic 126 mm Hg Summary Purpose [employer] Submission
--- OUTSIDE RECORDS SUMMARY | 2018-10-15 18:57 | XMS REPORT ---
Author Author Hafsa Marcum Organization [employer] Address Unknown Phone Unavailable Care Team Providers Care Maintenance Machine Repairer Name Role Phone Hafsa Marcum CP Unavailable Encounters Encounter Location Date BLADDER [facility] Apr 15, 2014 Unknown [facility] Apr 06, 2015 medication refills/ sinus [facility] Mar 31, 2015 Cardiolyte Stress Test [facility] Feb 03, 2015 2 week follow up [facility] Jul 08, 2014 Unknown [facility] July 26, 2014 follow up [facility] Jun 24, 2014 Unknown [facility] Jun 26, 2014 Unknown [facility] May 07, 2014 Refill [facility] May 29, 2014 Urine Infection [facility] Apr 29, 2014 NV U/A C&S [facility] May 04, 2014 Update Demographics - Personal Info [facility] August 26, 2014 DM [facility] Jun 30, 2013 DIAB CHK [facility] September 11, 2013 Diabetes/ Anxiety [facility] December 10, 2013 Venlafaxine prescription [facility] Dec 23, 2013 Test Results/MMG order [facility] May 09, 2013 Medication Refill [facility] May 28, 2013 DM [facility] May 01, 2013 SINUS AND ALLERGIES [facility] September 03, 2014 Update Demographics - Additional Info [facility] August 26, 2014 FOLLOW UP ON DIABETES [facility] Feb 16, 2014 2 week follow up [facility] Apr 09, 2014 LMOM -results - need to change ATB [facility] November 18, 2014 rib pain/ fu [facility] December 16, 2014 Unknown [facility] December 18, [address] [facility] Jan 01, 2015 Carley Saucedo; [address] [facility] September 10, [address] [facility] October 08, [address] MYA-[address] [facility] [facility] November 10, 2014 FOLLOW UP [facility] November 10, 2014 [...] Problem Low back pain M54.5 Active Assessment Hypothyroidism E03.9 Active Problem Hyperlipidemia E78.5 Active Problem Vitamin D deficiency E55.9 Active Medications Medication Code System Code Instructions Start Date End Date Status Dosage Levothyroxine Sodium [facility] [address]-26 75 MCG Orally Once a day Inactive 1 tablet on an empty stomach in the morning Levothyroxine Sodium [facility] [address]-41 100 MCG Orally Once a day, 30 minutes before first meal on an empty stomach Apr 06, 2015 Active 1 tablet Social History Social History Element Qualifiers Date Reported Occupation: . Disabled Mar 31, 2015 children . 1 son Sarah Swift Mar 31, 2015 Ethnicity . Status , Is jamaican your primary language? Yes Mar 31, 2015 [...] alcohol? . Status: No Mar 31, 2015 Summary Purpose [employer] Submission
--- OUTSIDE RECORDS SUMMARY | 2018-10-15 18:57 | XMS REPORT ---
Author Author Shirin Donovan [facility] [employer] Address Unknown Phone Unavailable Care Team Providers Care Bench Hand Name Role Phone Shirin Donovan CP Unavailable Allergies, Adverse Reactions, Alerts Substance Reaction Event Type N.K.D.A. Info Not Available Non Drug Allergy Encounters Encounter Location Date BLADDER [facility] Apr 15, 2014 Unknown [facility] Apr 06, 2015 medication refills/ sinus [facility] Mar 31, 2015 Cardiolyte Stress Test [facility] Feb 03, 2015 2 week follow up [facility] Jul 08, 2014 Unknown [facility] July 26, 2014 lab results [facility] Apr 21, 2015 follow up [facility] Jun 24, 2014 Unknown [facility] Jun 26, 2014 Unknown [facility] May 07, 2014 Refill [facility] May 29, 2014 Urine Infection [facility] Apr 29, 2014 NV U/A C&S [facility] May 04, 2014 Update Demographics - Personal Info [facility] August 26, 2014 DM [facility] Jun 30, 2013 DIAB CHK [facility] September 11, 2013 Diabetes/ Anxiety [facility] December 10, 2013 Venlafaxine prescription [facility] Dec 23, 2013 Test Results/MMG order [facility] May 09, 2013 Medication Refill [facility] May 28, 2013 DM [facility] May 01, 2013 SINUS AND ALLERGIES [facility] September 03, 2014 Update Demographics - Additional Info [facility] August 26, 2014 FOLLOW UP ON DIABETES [facility] Feb 16, 2014 2 week follow up [facility] Apr 09, 2014 LMOM -results - need to change ATB [facility] November 18, 2014 rib pain/ fu [facility] December 16, 2014 Unknown [facility] December 18, 2014 charlene [facility] Jan 01, 2015 Carley Sheryl; 1955 [facility] September 10, 2014 MED REFILL [facility] October 08, 2014 ECHO-SADAF [facility] November 10, 2014 FOLLOW UP [facility] November 10, 2014 Problems Problem Type Condition ICD-9 Code Onset Dates Condition Status Problem HTN (hypertension) I10 Active Problem Chronic pain G89.29 Active Problem Insomnia G47.00 Active Problem Diabetes E11.9 Active Problem TMJ (dislocation of temporomandibular joint) S03.0XXA Active Problem Hypertriglyceridemia E78.1 Active Problem Low back pain M54.5 Active Problem 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 [address]-94 100 MCG Orally Once a day, 30 minutes before first meal on an empty stomach Apr 06, [address] [facility] [address]-84 1 GM Orally Twice a day Apr 21, 2015 October 18, 2015 Active [address] [facility] [address]-56 10 mg Orally Once a day Feb 16, 2014 Active [address] [facility] [address]-24 80 mg Orally Once a day Active [address] [facility] [address]-42 4 mg Orally Once a day Active 2 tablet with breakfast or the first main meal of the day Hydrocodone-Acetaminophen [facility] [address]-90 10-325 MG Orally every 6 hrs Active 1 tablet as needed MetFORMIN HCl ER [facility] [address]-08 1000 Orally twice a day (bid) Feb 16, 2014 Active 1 tablet Venlafaxine HCl ER [facility] [address]-47 150 MG Orally Once a day Jun 30, 2013 Active [address] [facility] [address]-66 2 MG Orally every 8 hrs Active 1 capsule as needed Gabapentin [facility] [address]-93 100 mg Orally patient takes 6 tablets through out the day Active Unknown Baclofen [facility] [address]-18 50 MCG/ML Intrathecal daily Active 62.[address] [facility] [address]-08 100 mg Orally Once a day Apr 21, 2015 October 18, 2015 Active 1 tablet Social History Social History Element Qualifiers Date Reported Occupation: . Disabled Apr 21, 2015 children . 1 son - Jamison Apr 21, 2015 Ethnicity . Status , Is pashto your primary language? Yes Apr 21, 2015 Tobacco Use: . Are you a: former smoker Quit when 23 years old, How many packs per day? less than a half pack, How many years have you smoked? 2-5 Apr 21, 2015 Last Colonoscopy: . 2012Apr 21, 2015 Use of recreational / street drugs? . Answer: No Apr 21, 2015 Do you have pets? . Status: Yes, Type: dog(s) Apr 21, 2015 Where or with whom do you live ? . with Son Apr 21, 2015 Marital Status: . Apr 21, 2015 Caffeine intake? . Status: Yes, What type: Soft Drinks Apr 21, 2015 Do you exercise? . Answer: No Apr 21, 2015 Flu Vaccine: . no Apr 21, 2015 Last Bone Density: . 2010Apr 21, 2015 Do you drink alcohol? . Status: No Apr 21, 2015 Family history Qualifier Description Comment Date Reported Maternal Grandmother breast cancer Apr 21, 2015 Paternal Grandmother Comment not available Apr 21, 2015 Siblings alive Sister-breast cancer Apr 21, 2015 Maternal Grandfather Comment not available Apr 21, 2015 Children Comment not available Apr 21, 2015 Father heart attack Apr 21, 2015 Paternal Grandfather Comment not available Apr 21, 2015 Mother alive diabetes Apr 21, 2015 Other: Comment not available Apr 21, 2015 Vital Signs Date/Time: Apr 21, 2015 Weight 188 lbs Height 64 in Cardiac Monitoring Heart Rate 100 /min Blood Pressure Diastolic 72 mm Hg Blood Pressure Systolic 124 mm Hg Summary Purpose [employer]Works Submission
--- OUTSIDE RECORDS SUMMARY | 2018-10-15 18:57 | XMS REPORT ---
Author Author Veronika Tena [facility] [employer] Address Unknown Phone Unavailable Care Team Providers Care Bobbin Hauler Name Role Phone Veronika Tena Unavailable Encounters Encounter Location Date BLADDER [facility] Apr 15, 2014 Unknown [facility] Apr 06, 2015 medication refills/ sinus [facility] Mar 31, 2015 Cardiolyte Stress Test [facility] Feb 03, 2015 2 week follow up [facility] Jul 08, 2014 Unknown [facility] July 26, 2014 lab results [facility] Apr 21, 2015 follow up [facility] Jun 24, 2014 Unknown [facility] May 03, 2015 Unknown [facility] Jun 26, 2014 Unknown [facility] May 07, 2014 Refill [facility] May 29, 2014 Urine Infection [facility] Apr 29, 2014 NV U/A C&S [facility] May 04, 2014 Update Demographics - Personal Info [facility] August 26, 2014 DM [facility] Jun 30, 2013 DIAB CHK [facility] September 11, 2013 Diabetes/ Anxiety [facility] December 10, 2013 Venlafaxine prescription [facility] Dec 23, 2013 Test Results/MMG order [facility] May 09, 2013 Medication Refill [facility] May 28, 2013 DM [facility] May 01, 2013 SINUS AND ALLERGIES [facility] September 03, 2014 Update Demographics - Additional Info [facility] August 26, 2014 FOLLOW UP ON DIABETES [facility] Feb 16, 2014 2 week follow up [facility] Apr 09, 2014 LMOM -results - need to change ATB [facility] November 18, 2014 rib pain/ fu [facility] December 16, 2014 Unknown [facility] December 18, 2014 fu [facility] Jan 01, 2015 Carley Sheryl; 1955 [facility] September 10, 2014 MED REFILL [facility] October 08, 2014 ECHO-SADAF [facility] November 10, 2014 FOLLOW UP [facility] November 10, 2014 [...] Depression F32.9 Active Problem Hypothyroidism E03.9 Active Problem Hyperlipidemia E78.5 Active Problem Vitamin D deficiency E55.9 Active Problem Peripheral neuropathy G62.9 Active Medications Medication Code System Code Instructions Start Date End Date Status Dosage Invokana [facility] [address]-80 100 mg Orally Once a day Apr 21, 2015 October 30, 2015 Active 1 tablet Lovaza [facility] [address]-83 1 GM Orally Twice a day Apr 21, 2015 October 30, 2015 Active 2 capsules [facility] [address]-05 1000 mg Orally twice a day (bid) Feb 16, 2014 Active 1 tablet Social History Social History Element Qualifiers Date Reported Occupation: . Disabled Apr 21, 2015 children . 1 son - Jamison Apr 21, 2015 Ethnicity . Status , Is burundian your primary language? Yes Apr 21, 2015 [...] alcohol? . Status: No Apr 21, 2015 Summary Purpose [employer]Works Submission
[2018-10-15] MEDS ORDERED: SODIUM CHLORIDE 0.9% 1000ML 1,000 ML IV ONE ×2 (20:15→22:00)
[2018-10-15 20:37] LABS: BASOPHILS % 0.5 % (0.0-1.0); EOSINOPHILS # (AUTO) 0.2 (0.0-0.4); EOSINOPHILS % 2.8 % (0.0-6.0); HEMATOCRIT 39.6 % (34.2-44.1); HEMOGLOBIN 12.4 g/dL (12.0-16.0); LYMPHOCYTES # (AUTO) 3.2 (1.0-3.2); LYMPHOCYTES % 43.3 % (18.0-39.1); MEAN CORPUSCULAR HEMOGLOBIN 27.6 pg (28-32); MEAN CORPUSCULAR HGB CONC 31.3 g/dL (31-35); MEAN CORPUSCULAR VOLUME 88.2 fL (81-99); MONOCYTES # (AUTO) 0.5 (0.2-0.8); MONOCYTES % 7.1 % (4.4-11.3); NEUTROPHILS # (AUTO) 3.4 (2.1-6.9); PLATELET COUNT 275 x10e3/uL (140-360); RED BLOOD COUNT 4.49 x10e6/uL (3.6-5.1); RED CELL DISTRIBUTION WIDTH 14.4 % (11.7-14.4)
[2018-10-15 20:55] LABS: ALBUMIN 3.9 g/dL (3.5-5.0); ALBUMIN/GLOBULIN RATIO 1.3 (0.8-2.0); ANION GAP 13.9 mmol/L (8-16); CALCIUM 10.4 mg/dL (8.4-10.2); CREATININE, SERUM 2.08 mg/dL (0.57-1.11); POTASSIUM 3.9 mmol/L (3.5-5.1)
[2018-10-15 21:22] LABS: BILIRUBIN,URINE NEGATIVE (NEGATIVE); CLARITY,URINE SL CLOUDY (CLEAR); COLOR,URINE YELLOW (YELLOW); KETONES,URINE NEGATIVE (NEGATIVE); LEUKOCYTE ESTERASE ,URINE SMALL (NEGATIVE); NITRITE,URINE NEGATIVE (NEGATIVE); PROTEIN,URINE DIPSTICK NEGATIVE (NEGATIVE); URINE UROBILINOGEN 0.2 mg/dL (0.2 - 1)
[2018-10-15 21:34] LABS: BACTERIA,URINE MANY /HPF; EPITHELIAL CELLS,URINE RARE /LPF; RBC,URINE 0-5 /HPF (0-5); WBC,URINE (MAN) 21-50 /HPF (0-5)
[2018-10-15] MEDS ORDERED: CEFTRIAXONE SOD 1 GM/NS 50 ML 50 ML IV ONE (22:00)
--- NOTE | 2018-10-15 22:22 | Diagnostic Imaging Report ---
EXAMINATION: CHEST SINGLE (PORTABLE) COMPARISON: Chest x-ray 06/21/2010 INDICATION: Shortness of breath, congestion ^SOB ^[id number] ^2150 ^Y DISCUSSION: Frontal view of the chest obtained at 2200 hours. HEART AND MEDIASTINUM: The cardiomediastinal silhouette is unremarkable. LINES: None. 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 There is mild left basilar atelectasis. Masslike density in the base of the left chest on previous exam is no longer visualized. PLEURA: No pleural effusion or pneumothorax. BONES AND SOFT TISSUES: No focal osseous lesion. The soft tissues are normal. IMPRESSION: Bibasilar atelectasis. Stable eventration of the right diaphragm. No acute cardiopulmonary process. Signed by: Dr. Nitesh Swift MD on 10/15/2018 10:19 PM
[2018-10-15 22:48] VITALS: BP 110/67
== END 2018-10-15 23:23 | disposition home or self-care (01) ==
LOC: ER 18:50
DX: R42 Dizziness and giddiness (principal); E86.0 Dehydration; E11.9 Type 2 diabetes mellitus without complications; E78.5 Hyperlipidemia, unspecified; N20.0 Calculus of kidney; F41.9 Anxiety disorder, unspecified; F32.9 Major depressive disorder, single episode, unspecified
CPT/HCPCS: 36415; 71045; 80053; 81001; 83605; 85025; 99284; J0696; J7030

== ENCOUNTER 2020-04-20 17:00 | Observation (INO) | payer MEDICARE ==
[~2020-04-20] VITALS: Ht 162.6 cm; Wt 82.7 kg
[2020-04-20] MEDS ORDERED: METFORMIN HCL1000 M1 (17:15)
[2020-04-20] MEDS ORDERED: LISINOPRIL10 MG PO (17:15)
[2020-04-20] MEDS ORDERED: VANCOMYCIN 1GM/NS 250 ML 250 ML IV ONE (17:30)
[2020-04-20] MEDS ORDERED: SODIUM CHLORIDE FLUSH 10 ML SYR INJ PRN (17:30)
[2020-04-20] MEDS ORDERED: VANCOMYCIN 1GM/NS 250 ML 250 ML ONE (17:35)
[2020-04-20] MEDS ORDERED: ENALAPRILAT IV INJ 1.25 MG/ML VIAL IV PRN (18:15)
[2020-04-20] MEDS ORDERED: DIPHENHYDRAMINE HCL 25 MG CAP PO PRN (18:15)
[2020-04-20] MEDS ORDERED: CLONIDINE HCL 0.2 MG TAB PO PRN (18:15)
[2020-04-20] MEDS ORDERED: ACETAMINOPHEN 325 MG TAB PO PRN (18:15)
[2020-04-20] MEDS ORDERED: DEXTROSE 50% SYRINGE 50 ML IV PRN (18:15)
[2020-04-20] MEDS ORDERED: ONDANSETRON HCL INJ 2MG/ML 2ML 2 MG/ML VIAL ONE ×2 (18:46→19:26)
[2020-04-20] MEDS: ONDANSETRON HCL INJ 2MG/ML 2ML 2 MG/ML VIAL IV PRN (19:29)
[2020-04-20 20:00] VITALS: BP 137/77
[2020-04-20 20:30] VITALS: BP 137/77
[2020-04-20] MEDS: INSULIN REGULAR, HUMAN 100 UNIT/1 ML 3ML VIAL SQ SCH (21:00)
[2020-04-20] MEDS ORDERED: ZOLPIDEM TARTRATE 5 MG TAB PO PRN (21:00)
[2020-04-20 21:37] VITALS: BP 137/77
[2020-04-20] MEDS ORDERED: SODIUM CHLORIDE 0.9% 1000ML 250 ML IV STA (21:42)
[2020-04-20] MEDS: PIPER-TAZ 3.375 GM 50 ML IV SCH (22:04)
[2020-04-20] MEDS ORDERED: IOPAMIDOL 370 MG/ML 200 ML INFUS..BTL INJ ONE (22:35)
[2020-04-20] MEDS ORDERED: SODIUM CHLORIDE 0.9% 50ML 50 ML ONE (22:35)
[2020-04-20] MEDS: HYDROCODONE/APAP 7.5MG-325MG 1 EA TAB PO PRN (23:55)
[2020-04-21] VITALS (8 sets, daily range): BP systolic 105–138; BP diastolic 62–80
[2020-04-21] MEDS: ONDANSETRON HCL INJ 2MG/ML 2ML 2 MG/ML VIAL IV PRN (00:30)
[2020-04-21] MEDS ORDERED: METFORMIN HCL750 MG PO (01:37)
[2020-04-21] MEDS ORDERED: VENLAFAXINE HCL75 MG PO (01:37)
[2020-04-21] MEDS ORDERED: BUSPIRONE HCL7.5 MG PO (01:37)
[2020-04-21] MEDS ORDERED: PROTONIX40 MG PO (01:37)
[2020-04-21] MEDS ORDERED: HYDROXYZINE HCL25 MG PO (01:37)
[2020-04-21] MEDS ORDERED: GLIMEPIRIDE2 MG PO (01:37)
[2020-04-21] MEDS ORDERED: SIMVASTATIN20 MG PO (01:37)
[2020-04-21] MEDS ORDERED: LEVOTHYROXINE112 MC1 PO (01:37)
[2020-04-21] MEDS: PIPER-TAZ 3.375 GM 50 ML IV SCH ×4 (03:15→20:16)
[2020-04-21 05:24] LABS: ANION GAP 15.1 mmol/L (8-16); CALCIUM 8.9 mg/dL (8.4-10.2); POTASSIUM 4.1 mmol/L (3.5-5.1)
[2020-04-21] MEDS: VANCOMYCIN 1GM/NS 250 ML 250 ML IV SCH ×2 (05:29→16:27)
[2020-04-21] MEDS: INSULIN REGULAR, HUMAN 100 UNIT/1 ML 3ML VIAL SQ SCH ×4 (07:30→20:25)
[2020-04-21] MEDS: FAMOTIDINE 20 MG TAB PO SCH ×2 (08:07→16:25)
[2020-04-21] MEDS: ENOXAPARIN SOD INJ 40 MG/0.4 ML SYR SC SCH (08:53)
[2020-04-21] MEDS: HYDROCODONE/APAP 7.5MG-325MG 1 EA TAB PO PRN (08:55)
[2020-04-21] MEDS: MUPIROCIN 2% OINT 22 GM TUBE TOP SCH (16:27)
[2020-04-22] VITALS: BP 134/81
[2020-04-22] MEDS: HYDROCODONE/APAP 7.5MG-325MG 1 EA TAB PO PRN ×2 (00:30→06:35)
[2020-04-22] MEDS: PIPER-TAZ 3.375 GM 50 ML IV SCH (02:00)
[2020-04-22] MEDS: ONDANSETRON HCL INJ 2MG/ML 2ML 2 MG/ML VIAL IV PRN (05:00)
[2020-04-22] MEDS: VANCOMYCIN 1GM/NS 250 ML 250 ML IV SCH (05:36)
[2020-04-22] MEDS: INSULIN REGULAR, HUMAN 100 UNIT/1 ML 3ML VIAL SQ SCH ×2 (07:30→11:30)
[2020-04-22 07:34] VITALS: BP 142/73
[2020-04-22 08:33] VITALS: BP 142/73
[2020-04-22] MEDS ORDERED: DOXYCYCLINE HYCLATE TABLET 100 MG TAB PO SCH (09:00)
[2020-04-22] MEDS: ENOXAPARIN SOD INJ 40 MG/0.4 ML SYR SC SCH (09:58)
[2020-04-22] MEDS: FAMOTIDINE 20 MG TAB PO SCH (09:58)
[2020-04-22] MEDS: MUPIROCIN 2% OINT 22 GM TUBE TOP SCH (10:23)
[2020-04-22 11:22] VITALS: BP 139/75
[2020-04-22] MEDS ORDERED: FUROSEMIDE 40 MG TAB PO ONE (12:15)
[2020-04-22 13:13] LABS: BASOPHILS # (AUTO) 0.1 (0.0-0.1); BASOPHILS % 0.8 % (0.0-1.0); EOSINOPHILS # (AUTO) 0.3 (0.0-0.4); EOSINOPHILS % 4.7 % (0.0-6.0); HEMATOCRIT 36.7 % (34.2-44.1); HEMOGLOBIN 11.3 g/dL (12.0-16.0); LYMPHOCYTES # (AUTO) 2.2 (1.0-3.2); LYMPHOCYTES % 36.9 % (18.0-39.1); MEAN CORPUSCULAR HEMOGLOBIN 25.2 pg (28-32); MEAN CORPUSCULAR HGB CONC 30.8 g/dL (31-35); MEAN CORPUSCULAR VOLUME 81.9 fL (81-99); MONOCYTES # (AUTO) 0.4 (0.2-0.8); MONOCYTES % 6.3 % (4.4-11.3); NEUTROPHILS % 51.1 % (38.7-80.0); PLATELET COUNT 186 x10e3/uL (140-360); RED BLOOD COUNT 4.48 x10e6/uL (3.6-5.1); RED CELL DISTRIBUTION WIDTH 16.7 % (11.7-14.4)
[2020-04-22 13:30] LABS: ANION GAP 12.1 mmol/L (8-16); BLOOD UREA NITROGEN 12 mg/dL (7-26); BUN/CREATININE RATIO 13 (6-25); CARBON DIOXIDE 27 mmol/L (22-29); CHLORIDE 106 mmol/L (98-107); CREATININE, SERUM 0.93 mg/dL (0.57-1.11); EST GLOMERULAR FILTRATION RATE > 60 ML/MIN (60-); GLUCOSE 153 mg/dL (74-118); POTASSIUM 4.1 mmol/L (3.5-5.1); SODIUM 141 mmol/L (136-145)
[2020-04-22 15:56] VITALS: BP 160/94
[2020-04-23] MEDS ORDERED: FUROSEMIDE 20 MG TAB PO SCH (09:00)
== END 2020-04-22 16:19 | disposition home or self-care (01) ==
LOC: FSED 17:23 → ERHOLD 17:41 → MED/SURG3 19:53
PROVIDERS: ADMIT Internal Medicine; ATTEND Internal Medicine
DX: E11.628 Type 2 diabetes mellitus with other skin complications (principal); Z79.899 Other long term (current) drug therapy; S80.822A Blister (nonthermal), left lower leg, initial encounter; I10 Essential (primary) hypertension; L03.116 Cellulitis of left lower limb; Z86.19 Personal history of other infectious and parasitic diseases; Z20.828 Contact with and (suspected) exposure to other viral communicable diseases; E11.621 Type 2 diabetes mellitus with foot ulcer
CPT/HCPCS: 36415 ×2; 71260; 73630; 80048 ×2; 80053; 80202; 82553; 82948 ×3; 83880; 84484; 85025 ×2; 86677; 86707; 87340; 93005; 93970; 99251; 99284; G0378 ×3; J1650 ×2; J2405 ×3; J2543 ×3; J3370 ×3; J7030; Q9967; U0002

== ENCOUNTER 2021-07-10 11:00 | Emergency (ER) | payer MEDICARE ==
[~2021-07-10] VITALS: Ht 162.6 cm; Wt 74.4 kg
[~2021-07-10 11:00] MED LIST: BUSPIRONE HCL7.5 MG PO; GLIMEPIRIDE2 MG PO; HYDROXYZINE HCL25 MG PO; LEVOTHYROXINE112 MC1 PO; LISINOPRIL10 MG PO; METFORMIN HCL1000 M1; METFORMIN HCL750 MG PO; PROTONIX40 MG PO; SIMVASTATIN20 MG PO; VENLAFAXINE HCL75 MG PO
[2021-07-10] MEDS ORDERED: ONDANSETRON HCL 4 MG ORAL DISINTEGRATING TAB ONE (11:48)
[2021-07-10] MEDS ORDERED: ONDANSETRON HCL 4 MG ORAL DISINTEGRATING TAB PO NR (12:09)
[2021-07-10] MEDS ORDERED: MAGNESIUM OXID400 MG PO (12:25)
[2021-07-10] MEDS ORDERED: FARXIGA5 MG (12:25)
[2021-07-10] MEDS ORDERED: CYMBALTA30 MG (12:25)
[2021-07-10] MEDS ORDERED: PEPCID20 MG PO (13:19)
[2021-07-10] MEDS ORDERED: ONDANSETRON ODT4 MG PO (13:19)
== END 2021-07-10 13:23 | disposition home or self-care (01) ==
LOC: FSED 11:06
DX: R10.13 Epigastric pain (principal); R11.2 Nausea with vomiting, unspecified; R51.9 Headache, unspecified; E11.9 Type 2 diabetes mellitus without complications; E78.5 Hyperlipidemia, unspecified; F41.9 Anxiety disorder, unspecified; Z87.442 Personal history of urinary calculi
CPT/HCPCS: 71250; 74176; 81003; 87400; 93005; 99283; Q0162

== ENCOUNTER 2021-09-12 16:15 | Emergency (ER) | payer MEDICARE ==
[~2021-09-12] VITALS: Ht 162.6 cm; Wt 70.8 kg
[~2021-09-12 16:15] MED LIST changes: +CYMBALTA30 MG; +FARXIGA5 MG; +MACROBID 100 M100 MG PO; +MAGNESIUM OXID400 MG PO; +ONDANSETRON ODT4 MG PO; +PEPCID20 MG PO
[2021-09-12] MEDS ORDERED: CEFUROXIME500 MG PO (17:45)
== END 2021-09-12 17:53 | disposition home or self-care (01) ==
LOC: FSED 16:41
DX: R30.0 Dysuria (principal); N39.0 Urinary tract infection, site not specified; I10 Essential (primary) hypertension; E11.9 Type 2 diabetes mellitus without complications; E78.5 Hyperlipidemia, unspecified; E03.9 Hypothyroidism, unspecified; K21.9 Gastro-esophageal reflux disease without esophagitis; M54.9 Dorsalgia, unspecified; G89.29 Other chronic pain
CPT/HCPCS: 81003; 99283

== ENCOUNTER 2021-10-08 15:14 | Emergency (ER) | payer MEDICARE ==
[~2021-10-08] VITALS: Ht 162.6 cm; Wt 70.8 kg
[~2021-10-08 15:14] MED LIST changes: +CEFUROXIME500 MG PO
[2021-10-08] MEDS ORDERED: LORAZEPAM 1 MG TAB PO NR (16:00)
[2021-10-08] MEDS ORDERED: HYDROXYZINE HCL25 MG PO (16:00)
[2021-10-08] MEDS ORDERED: LORAZEPAM 0.5 MG TAB ONE (16:13)
== END 2021-10-08 16:16 | disposition home or self-care (01) ==
LOC: FSED 15:30
DX: F41.9 Anxiety disorder, unspecified (principal); I10 Essential (primary) hypertension; E11.9 Type 2 diabetes mellitus without complications; E78.5 Hyperlipidemia, unspecified; K21.9 Gastro-esophageal reflux disease without esophagitis; M54.9 Dorsalgia, unspecified; G89.29 Other chronic pain
CPT/HCPCS: 99282

== ENCOUNTER → 2022-02-07 | Day surgery (SDC) | payer MEDICARE ==
[~2022-02-07] MED LIST changes: +FENTANYL CITRATE/PF 100MCG/2 ML INJ ONE; +LISINOPRIL5 MG PO; +MELOXICAM7.5 MG PO; +MIDAZOLAM HCL 2 MG/2 ML VIAL ONE; +OR PHACO EYE KIT ONE; +PANTOPRAZOLE SO40 MG PO; +PREOP PHACO EYE KIT ONE
[2022-02-07 08:35] LABS: BASOPHILS # (AUTO) 0.1 (0.0-0.1); BASOPHILS % 1.1 % (0.0-1.0); EOSINOPHILS # (AUTO) 0.3 (0.0-0.4); EOSINOPHILS % 3.6 % (0.0-6.0); HEMATOCRIT 40.4 % (34.2-44.1); HEMOGLOBIN 12.2 g/dL (12.0-16.0); LYMPHOCYTES # (AUTO) 2.5 (1.0-3.2); LYMPHOCYTES % 34.1 % (18.0-39.1); MEAN CORPUSCULAR HEMOGLOBIN 25.5 pg (28-32); MEAN CORPUSCULAR HGB CONC 30.2 g/dL (31-35); MEAN CORPUSCULAR VOLUME 84.5 fL (81-99); MONOCYTES # (AUTO) 0.6 (0.2-0.8); NEUTROPHILS # (AUTO) 3.8 (2.1-6.9); NEUTROPHILS % 53.1 % (38.7-80.0); PLATELET COUNT 322 x10e3/uL (140-360); RED BLOOD COUNT 4.78 x10e6/uL (3.6-5.1); RED CELL DISTRIBUTION WIDTH 14.9 % (11.7-14.4)
[2022-02-07 10:45] VITALS: BP 125/83
== END | disposition home or self-care (01) ==
LOC: OR 07:50
PROVIDERS: ATTEND Ophthalmology
DX: H25.11 Age-related nuclear cataract, right eye (principal); I25.10 Atherosclerotic heart disease of native coronary artery without angina pectoris; I10 Essential (primary) hypertension; E78.5 Hyperlipidemia, unspecified; E11.9 Type 2 diabetes mellitus without complications; K21.9 Gastro-esophageal reflux disease without esophagitis; M54.9 Dorsalgia, unspecified; F41.9 Anxiety disorder, unspecified; Z79.84 Long term (current) use of oral hypoglycemic drugs; Z79.899 Other long term (current) drug therapy; Z86.61 Personal history of infections of the central nervous system; Z86.16 Personal history of COVID-19
CPT/HCPCS: 36415; 66984; 82948; 85025; J2250; J3010; V2788

== ENCOUNTER 2022-06-02 15:27 | Emergency (ER) | payer MEDICARE ==
[~2022-06-02] VITALS: Ht 162.6 cm; Wt 77.1 kg
[~2022-06-02 15:27] MED LIST changes: -FENTANYL CITRATE/PF 100MCG/2 ML INJ ONE; -MIDAZOLAM HCL 2 MG/2 ML VIAL ONE; -OR PHACO EYE KIT ONE; -PREOP PHACO EYE KIT ONE
[2022-06-02] MEDS ORDERED: AMOX TR-K CLV1 EAC2 PO (16:54)
[2022-06-02] MEDS ORDERED: CORTISPORIN-TC10 M1 LEFT EAR (16:58)
== END 2022-06-02 17:11 | disposition home or self-care (01) ==
LOC: FSED 15:32
DX: H60.92 Unspecified otitis externa, left ear (principal); E11.9 Type 2 diabetes mellitus without complications; I10 Essential (primary) hypertension; F41.9 Anxiety disorder, unspecified
CPT/HCPCS: 99282

== ENCOUNTER 2022-08-31 16:17 | Emergency (ER) | payer MEDICARE ==
[~2022-08-31] VITALS: Ht 162.6 cm; Wt 70.3 kg
[~2022-08-31 16:17] MED LIST changes: +AMOX TR-K CLV1 EAC2 PO; +CORTISPORIN-TC10 M1 LEFT EAR
[2022-08-31] MEDS ORDERED: NASACORT16.9 ML (16:42)
== END 2022-08-31 16:55 | disposition home or self-care (01) ==
LOC: FSED 16:29
DX: R09.81 Nasal congestion (principal); J30.9 Allergic rhinitis, unspecified; E11.9 Type 2 diabetes mellitus without complications; E78.5 Hyperlipidemia, unspecified; E03.9 Hypothyroidism, unspecified; K21.9 Gastro-esophageal reflux disease without esophagitis; M54.9 Dorsalgia, unspecified; G89.29 Other chronic pain
CPT/HCPCS: 99282

== ENCOUNTER 2023-12-29 10:36 | Emergency (ER) | payer MEDICARE ==
[~2023-12-29] VITALS: Ht 162.6 cm; Wt 65.8 kg
[~2023-12-29 10:36] MED LIST changes: +BUSPIRONE HCL5 MG PO; +CEFDINIR300 MG PO; +DIFLUCAN150 MG PO; +ECONAZOLE NITRA15 GM VG; +GLIPIZIDE5 MG PO; +HYDRALAZINE HCL10 MG PO; +IBUPROFEN200 MG PO; +MULTI-VITAMIN1 EACH PO; +NASACORT16.9 ML; +PROBIOTIC & AC1 EACH PO
[2023-12-29 10:45] VITALS: PULSE 72; RESP 16; TEMP 98.9; O2SAT 95
[2023-12-29] MEDS ORDERED: MACROBID 100 M100 MG PO (10:45)
== END 2023-12-29 11:25 | disposition home or self-care (01) ==
LOC: FSED 10:41
DX: R30.0 Dysuria (principal); R39.15 Urgency of urination; I10 Essential (primary) hypertension; E11.65 Type 2 diabetes mellitus with hyperglycemia; E78.5 Hyperlipidemia, unspecified; E03.9 Hypothyroidism, unspecified; I25.10 Atherosclerotic heart disease of native coronary artery without angina pectoris; D64.9 Anemia, unspecified; K21.9 Gastro-esophageal reflux disease without esophagitis; F41.9 Anxiety disorder, unspecified; M54.9 Dorsalgia, unspecified; G89.29 Other chronic pain
CPT/HCPCS: 36415; 81003; 82948; 99282

== ENCOUNTER 2024-03-02 15:51 | Emergency (ER) | payer MEDICARE ==
[~2024-03-02] VITALS: Ht 162.6 cm; Wt 65.8 kg
[2024-03-02 15:54] VITALS: PULSE 67; RESP 15; TEMP 97.9; O2SAT 96
[2024-03-02] MEDS ORDERED: PYRIDIUM100 MG PO (16:17)
[2024-03-02] MEDS ORDERED: MACROBID 100 M100 MG PO (16:19)
== END 2024-03-02 16:32 | disposition home or self-care (01) ==
LOC: FSED 16:17
DX: R30.0 Dysuria (principal); I10 Essential (primary) hypertension; E11.9 Type 2 diabetes mellitus without complications; E03.9 Hypothyroidism, unspecified; I25.10 Atherosclerotic heart disease of native coronary artery without angina pectoris; D64.9 Anemia, unspecified; E78.5 Hyperlipidemia, unspecified; F41.9 Anxiety disorder, unspecified; K21.9 Gastro-esophageal reflux disease without esophagitis; M54.9 Dorsalgia, unspecified; G89.29 Other chronic pain
CPT/HCPCS: 81003; 99283

== ENCOUNTER 2024-04-12 15:52 | Emergency (ER) | payer MEDICARE ==
[~2024-04-12] VITALS: Ht 162.6 cm; Wt 64.2 kg
[~2024-04-12 15:52] MED LIST changes: +PYRIDIUM100 MG PO
[2024-04-12 15:58] VITALS: PULSE 86; RESP 18; TEMP 97.7
[2024-04-12] MEDS ORDERED: NITROFURANTOIN100 MG PO (16:57)
[2024-04-12 17:13] VITALS: BP 117/74; PULSE 76; RESP 16; TEMP 98.2; O2SAT 95
== END 2024-04-12 17:16 | disposition home or self-care (01) ==
LOC: FSED 16:00
DX: R35.0 Frequency of micturition (principal); N39.0 Urinary tract infection, site not specified; E11.9 Type 2 diabetes mellitus without complications; D64.9 Anemia, unspecified
CPT/HCPCS: 87086; 99284

== ENCOUNTER 2024-06-17 12:22 | Emergency (ER) | payer MEDICARE ==
[~2024-06-17] VITALS: Ht 162.6 cm; Wt 63.1 kg
[~2024-06-17 12:22] MED LIST changes: +NITROFURANTOIN100 MG PO
[2024-06-17] MEDS ORDERED: BACLOFEN10 MG PO (12:45)
[2024-06-17] MEDS ORDERED: IBUPROFEN600 MG PO (12:47)
[2024-06-17 14:18] VITALS: PULSE 69; RESP 18; TEMP 98.3; O2SAT 100
== END 2024-06-17 14:20 | disposition home or self-care (01) ==
LOC: FSED 12:34
DX: M26.622 Arthralgia of left temporomandibular joint (principal); R07.89 Other chest pain; E11.65 Type 2 diabetes mellitus with hyperglycemia; D50.9 Iron deficiency anemia, unspecified; Z96.652 Presence of left artificial knee joint
CPT/HCPCS: 71046; 80053; 84484; 85025; 93005; 99283

== ENCOUNTER 2024-08-22 09:11 | Emergency (ER) | payer MEDICARE ==
[~2024-08-22] VITALS: Ht 162.6 cm; Wt 62.6 kg
[~2024-08-22 09:11] MED LIST changes: +BACLOFEN10 MG PO; +IBUPROFEN600 MG PO
[2024-08-22 11:01] VITALS: PULSE 88; RESP 16; TEMP 97.9; O2SAT 98
== END 2024-08-22 11:01 | disposition home or self-care (01) ==
LOC: FSED 09:24
DX: R39.89 Other symptoms and signs involving the genitourinary system (principal); N81.10 Cystocele, unspecified; N39.0 Urinary tract infection, site not specified; I10 Essential (primary) hypertension; E11.9 Type 2 diabetes mellitus without complications; E03.9 Hypothyroidism, unspecified; E78.5 Hyperlipidemia, unspecified; D64.9 Anemia, unspecified; K21.9 Gastro-esophageal reflux disease without esophagitis; F41.9 Anxiety disorder, unspecified; F32.A Depression, unspecified; M54.9 Dorsalgia, unspecified; G89.29 Other chronic pain
CPT/HCPCS: 81003; 87086; 87186; 99284